=== PATIENT | male | born 1955 | race Caucasian/White ===

== ENCOUNTER → 2017-11-01 | Outpatient (CLI) | payer OTHER ==
[~2017-11-01] MED LIST: ACEDIPPM PO; ALBU3IS INH; ALBU90I INH; ALBU90OI61 INH; ALLO100 PO; ALUMAGSIMA PO; AMLO5; AMLO5 PO; ASCO1ER; ASPI81CH PO; ASPI81EC; ASPI81EC PO; ATOR10 PO; ATOR20 PO; Adipex-P37.5 MG PO; B Complete1 EACH PO; BUME2 PO; Bactrim 400-801 EACH PO; CAND32; CEPH500 PO; CHOL10002 PO; CIPR500 PO; CITA20 PO; CLON.2 PO; CLON.5 PO; CLOP75 PO; COLC.6 PO; CYAN1000 PO; DIPH50 PO; DOCU100 PO; DULO60 PO; ENOX40I SC; ENOX40I SQ; ERGO400 PO; FERR325 PO; FERSU125EA PO; FIBE4P PO; FISH1000 PO; FLUSAL1005 IH; FLUSAL2505 IH; FURO80; GABA100 PO; GABA300 PO; GLIP5ER PO; GLYB5 PO; GRAPE SEED EXT MC; GUAI600T33 PO; HEPARIN SQ; HYDACE10B PO; HYDACE5325 PO; HYDCOR1TO TOP; HYDR1TAB94 PO; INSU100I6 SC; INSUASPI SC; INSUASPI SUBQ; INSULANI SC; INSULANI SUBQ; INSULANPEN SC; IRON150C PO; LEVFLO500 PO; LEVO750 PO; LEVSOD100 PO; LEVSOD125 PO; LEVSOD150 PO; LEVSOD200; LEVSOD200 PO; LORA10ER PO; LORPSEER12 PO; MAGCHL64ER PO; MAGNESIUM; MELA3 PO; METF500 PO; METO10 PO; METO100 PO; METO100ER; METO100ER PO; METO2.5 PO; METO5 PO; METO50 PO; METO5A PO; MOMENI; MULTI VIT; Mupirocin22 GM TOP; NITR.4SL SL; NYST100P TOP; NYSTATIN POWDER; OMEG1CAP30 PO; OMEP20ER PO; ONDA4 PO; ONDA4ODT MM; OXYB5 PO; OXYC10ER PO; OXYM.05NI; PHENA200 PO; POTCHL10ER PO; POTCHL20ER PO; PRED10 PO; PROBIOTIC1 EAC1 PO; PROM25 PO; RANI150; RANI150 PO; ROPI.25 PO; ROPI1 PO; ROPI2 PO; SENN187 PO; SIMV40; SITA100T2 PO; SODPHOSO PR; SPIR25 PO; SPIR50 PO; SULTRIDS PO; SYNTHROID0.2 MG PO; Senna8.6 MG PO; Synthroid300 MCG PO; TERA1 PO; TERA5 PO; TERB250 PO; TOLT4 PO; TRAZ100 PO; TRAZ50; TRAZ50 PO; VENL37.5ER PO; VERA120 PO; VITAMIN D3; ZINC15 PO; ZINC220 PO; [UNRECOGNIZED DRUG - OTHER]; [UNRECOGNIZED DRUG - REMARK] PO
[2017-11-01 12:08] LABS: Protein, Urine Quantitative 46.9 mg/dL (0.0-11.9)
== END ==
LOC: LAB 11:05 → EDSTATUS 04-24 14:50 → LAB FUT 04-24 14:50
PROVIDERS: Internal Medicine Nephrology
DX: N18.2 Chronic kidney disease, stage 2 (mild) (principal); D63.1 Anemia in chronic kidney disease; D51.8 Other vitamin B12 deficiency anemias; D52.8 Other folate deficiency anemias; D50.9 Iron deficiency anemia, unspecified
CPT/HCPCS: 81050; 82043; 84156

== ENCOUNTER 2019-03-19 13:17 | Emergency (ER) | payer OTHER ==
[~2019-03-19] VITALS: Ht 175.3 cm; Wt 197.3 kg
[~2019-03-19 13:17] MED LIST changes: -CHOL10002 PO; +COLCHICINE0.6 MG PO; -INSU100I6 SC; +MAG6464 MG PO; +NOVOLOG FL100 UNIT/1 SC; -ROPI2 PO; +Ropinirole HCl1 MG PO; +VITAMIN D31000 UNI2 PO
[2019-03-19] MEDS ORDERED: Prednisone20 MG PO (15:27)
== END 2019-03-19 16:00 | disposition home or self-care (01) ==
LOC: ER 13:17
DX: L89.899 Pressure ulcer of other site, unspecified stage (principal); J45.901 Unspecified asthma with (acute) exacerbation; E66.01 Morbid (severe) obesity due to excess calories; Z68.44 Body mass index [BMI] 60.0-69.9, adult; Z91.040 Latex allergy status; Z79.899 Other long term (current) drug therapy; Z79.82 Long term (current) use of aspirin; Z79.4 Long term (current) use of insulin; Z79.891 Long term (current) use of opiate analgesic; E11.9 Type 2 diabetes mellitus without complications; I11.0 Hypertensive heart disease with heart failure; I50.9 Heart failure, unspecified
CPT/HCPCS: 71045; 94644; 99283-25

== ENCOUNTER 2019-05-12 15:54 | Observation (INO) | payer OTHER ==
[~2019-05-12] VITALS: Ht 175.3 cm; Wt 194.8 kg
[~2019-05-12 15:54] MED LIST changes: +Prednisone20 MG PO
[2019-05-12 16:15] LABS: BASOPHILS ABSOLUTE AUTO 0.03 K/mm3 (0.00-0.23); BASOPHILS PERCENT AUTO 0 % (0-2); EOSINOPHILS PERCENT AUTO 0 % (0-6); Hematocrit 39.1 % (37.0-53.0); Hemoglobin 12.3 g/dL (13.5-17.5); IMMATURE GRAN ABSOLUTE AUTO 0.27 K/mm3 (0.00-0.10); IMMATURE GRAN PERCENT AUTO 2 % (0-1); LYMPHOCYTES PERCENT AUTO 9 % (21-46); MONOCYTES ABSOLUTE AUTO 0.61 K/mm3 (0.16-1.47); MONOCYTES PERCENT AUTO 5 % (4-13); Mean Corpuscular HGB 29.5 pg (26.0-34.0); Mean Corpuscular HGB Conc 31.5 g/dL (31.5-36.5); Mean Corpuscular Volume 94 fL (80-100); Mean Platelet Volume 9.8 fL (9.1-12.4); NEUTROPHILS ABSOLUTE AUTO 9.64 K/mm3 (1.96-9.15); NEUTROPHILS PERCENT AUTO 83 % (41-73); Platelet Count 248 K/mm3 (150-400); RDW Coefficient Variation 13.4 % (11.7-14.2); RDW Standard Deviation 45.5 fL (35.1-46.3); Red Blood Cell Count 4.17 M/mm3 (4.30-5.90); White Blood Cell Count 11.65 K/mm3 (4.00-11.30)
[2019-05-12 16:36] LABS: Alanine Aminotransfer (ALT/SGP 22 U/L (12-78); Albumin, Blood 3.1 g/dL (3.4-5.0); Albumin/Globulin Ratio 0.8 (0.8-1.8); Alk Phos 61 U/L (50-136); Anion Gap 7 mmol/L (6-16); Aspartate Aminotrans (AST/SGOT 18 U/L (12-37); Bilirubin, Total 0.2 mg/dL (0.1-1.0); Blood Urea Nitrogen 45 mg/dL (8-24); Bun/Creatinine Ratio 29.4 (12.0-20.0); CO2, Blood 28 mmol/L (21-32); Calcium, Blood 9.4 mg/dL (8.5-10.1); Chloride, Blood 101 mmol/L (98-108); Creatinine, Blood 1.53 mg/dL (0.60-1.20); Globulin, Blood 3.8 g/dL (2.2-4.0); Glomerular Filtration Rate 49 (60-); Glucose, Blood 154 mg/dL (70-99); Potassium, Blood 4.9 mmol/L (3.5-5.5); Sodium, Blood 136 mmol/L (136-145); Total Protein, Blood 6.9 g/dL (6.4-8.2); Troponin I <0.015 ng/mL (0.000-0.040)
[2019-05-12] MEDS ORDERED: DOCU100 PO (17:44)
[2019-05-12] MEDS ORDERED: GABA300 PO ×2 (17:45→17:49)
[2019-05-12] MEDS ORDERED: TERA5 PO (17:50)
[2019-05-12] MEDS ORDERED: [UNRECOGNIZED DRUG - OTHER] SC ×2 (18:07→18:08)
[2019-05-12] MEDS ORDERED: Isosorbide Mono30 MG PO (18:10)
[2019-05-12] MEDS ORDERED: ISOMON20 PO (18:11)
[2019-05-12] MEDS ORDERED: Bumetanide1 MG PO (18:34)
--- NOTE | 2019-05-12 19:03 | NUR ---
patient arrived to the unit via gurny. max assist with transfers. states he does not walk, w/c bound at baseline. lift room. able to make his needs known. report given to PEDRO vaca.
[2019-05-12] MEDS ORDERED: NITR.4SL SL (19:38)
--- NOTE | 2019-05-12 20:03 | NUR ---
1900 PT ADMITTED INTO UNIT BY THIS NURSE AFTER RECEIVING REPORT FROM CORTES CHURCH. INITIAL ORDERS FROM ER HAD PATIENT NOT ON TELEMETRY, HOSPITALIST NOTIFIED AT 1926 WITH ORDERS RECEIVED (NSR WITH HEART RATE 62 PER ELISABETH, Heart Buddy). PTS SKIN WAS EXAMINED BY ROLLING SIDE TO SIDE X 6 ASSIST WITH LARGE LIFT BLANKET PLACED UNDERNEATH PATIENT (PT IS CURRENTLY IN A LIFT ROOM). PT VOICED HE DOES NOT WALK AND IS WHEELCHAIR BOUND, NO WALK PAST 6 YEARS. PTS IS RETURNING THIS EVENING TO BRING C/PAP BACK THIS EVENING.
--- NOTE | 2019-05-12 22:05 | NUR ---
PTS GLUCOSE 117, LANTUS 80 UNITS SCHEDULED MED GIVEN, PT ATE ENTIRE TURKEY SANDWICH WITH HERNANDEZ, CHOCOLATE PUDDING AND JELLO.
[2019-05-13 02:09] LABS: BASOPHILS ABSOLUTE AUTO 0.03 K/mm3 (0.00-0.23); BASOPHILS PERCENT AUTO 0 % (0-2); EOSINOPHILS ABSOLUTE AUTO 0.01 K/mm3 (0.00-0.68); EOSINOPHILS PERCENT AUTO 0 % (0-6); Hemoglobin 11.7 g/dL (13.5-17.5); IMMATURE GRAN ABSOLUTE AUTO 0.22 K/mm3 (0.00-0.10); IMMATURE GRAN PERCENT AUTO 2 % (0-1); LYMPHOCYTES PERCENT AUTO 12 % (21-46); MONOCYTES ABSOLUTE AUTO 0.86 K/mm3 (0.16-1.47); MONOCYTES PERCENT AUTO 8 % (4-13); Mean Corpuscular HGB 29.9 pg (26.0-34.0); Mean Corpuscular HGB Conc 31.6 g/dL (31.5-36.5); Mean Corpuscular Volume 95 fL (80-100); Mean Platelet Volume 9.5 fL (9.1-12.4); NEUTROPHILS PERCENT AUTO 78 % (41-73); Platelet Count 217 K/mm3 (150-400); RDW Coefficient Variation 13.5 % (11.7-14.2); RDW Standard Deviation 46.4 fL (35.1-46.3); Red Blood Cell Count 3.91 M/mm3 (4.30-5.90); White Blood Cell Count 10.32 K/mm3 (4.00-11.30)
[2019-05-13 02:27] LABS: Bun/Creatinine Ratio 26.7 (12.0-20.0); Calcium, Blood 8.9 mg/dL (8.5-10.1); Creatinine, Blood 1.76 mg/dL (0.60-1.20); Potassium, Blood 4.6 mmol/L (3.5-5.5)
--- NOTE | 2019-05-13 04:42 | NUR ---
SHIFT SUMMARY: 64 Y/O MORBID OBESE MALE RESTED COMFORTABLY ALL SHIFT, DENIES CHEST PAIN OR DSYPNEA, TELEMETRY REFLECTS NSR WITH HEART RATE 62 PER ALEXIS BARBER, TROPONIN 0.015 AT 0203 LAB DRAW, AT SIDE AND SUPPORTIVE ALL NIGHT, WORE BIPAP, BED LOW POSITION WITH CALL LIGHT AT SIDE.
[2019-05-13 20:50] LABS: Bun/Creatinine Ratio 26.2 (12.0-20.0); Calcium, Blood 8.9 mg/dL (8.5-10.1); Creatinine, Blood 1.87 mg/dL (0.60-1.20); Potassium, Blood 4.8 mmol/L (3.5-5.5)
--- NOTE | 2019-05-13 22:39 | NUR ---
2100 PT ATE TURKEY AND BEEF SANDWICH WITH HERNANDEZ AND MUSTARD WITH STRAWBERRY YOGURT FOR SNACK THIS EVENING.
--- NOTE | 2019-05-14 04:25 | NUR ---
SHIFT SUMMARY: 64 Y/O MORBID OBESE MALE RESTED COMFORTABLY ALL SHIFT WITH AT SIDE IN LOUNGE CHAIR WHOM VERY ATTENTIVE, DENIES PAIN OR NAUSEA, TELEMETRY REFLECTS NSR WITH FIRST DEGREE BLOCK AND OCCASIONAL PAC WITH HEART RATE 60 PER ELISABETH, QA AUTOMATION DEVELOPER, WORE C/PAP ALL SHIFT, HAPPY AND COOPERATIVE, BED LOW POSITION WITH CALL LIGHT AT SIDE.
[2019-05-14 05:29] LABS: BASOPHILS ABSOLUTE AUTO 0.04 K/mm3 (0.00-0.23); BASOPHILS PERCENT AUTO 0 % (0-2); EOSINOPHILS ABSOLUTE AUTO 0.13 K/mm3 (0.00-0.68); EOSINOPHILS PERCENT AUTO 1 % (0-6); Hematocrit 33.9 % (37.0-53.0); Hemoglobin 10.8 g/dL (13.5-17.5); IMMATURE GRAN ABSOLUTE AUTO 0.22 K/mm3 (0.00-0.10); IMMATURE GRAN PERCENT AUTO 2 % (0-1); LYMPHOCYTES ABSOLUTE AUTO 1.74 K/mm3 (0.84-5.20); LYMPHOCYTES PERCENT AUTO 19 % (21-46); MONOCYTES ABSOLUTE AUTO 1.11 K/mm3 (0.16-1.47); MONOCYTES PERCENT AUTO 12 % (4-13); Mean Corpuscular HGB 30.1 pg (26.0-34.0); Mean Corpuscular HGB Conc 31.9 g/dL (31.5-36.5); Mean Corpuscular Volume 94 fL (80-100); NEUTROPHILS ABSOLUTE AUTO 5.81 K/mm3 (1.96-9.15); NEUTROPHILS PERCENT AUTO 64 % (41-73); Platelet Count 218 K/mm3 (150-400); RDW Coefficient Variation 13.5 % (11.7-14.2); RDW Standard Deviation 46.8 fL (35.1-46.3); Red Blood Cell Count 3.59 M/mm3 (4.30-5.90); White Blood Cell Count 9.05 K/mm3 (4.00-11.30)
--- NOTE | 2019-05-14 17:50 | NUR ---
SHIFT SUMMARY PATIENT A&O X4, WEARING HOME CPAP MOST OF DAY. AT BEDSIDE, ATTENTIVE TO PT'S NEEDS. PT DENIES CHEST PAIN, SOB, NAUSEA. HE STATES HE HAS 5/10 CHRONIC BILAT SHOULDER PAIN. PATIENT HAD A EXTRA LARGE BM TODAY ON THE BEDPAN, ROLLED WITH HELP FROM THE LIFT. RN ASKED DR WINSTON ABOUT BACTROBAN OINTMENT ORDER AND HE STATED IT WAS 2% SO MEANT FOR ANY OPEN WOUNDS PATIENT HAS. HIS SKIN IS INTACT AT THIS TIME SO MED NOT GIVEN. BED LOW, WILL CONTINUE TO MONITOR.
--- NOTE | 2019-05-14 22:25 | NUR ---
2100 PT HAD TURKEY AND BEEF SANDWICH FOR HS SNACK.
--- NOTE | 2019-05-15 04:29 | NUR ---
SHIFT SUMMARY: 64 Y/O MORBID OBESE MALE RESTED COMFORTABLY ALL SHIFT WITH AT SIDE, DENIES CHEST PAIN, NAUSEA OR SOB, WORE BIPAP ALL NIGHT, VOICED HE STILL FEELS CONSTIPATED AND WOULD LIKE TO DRINK MORE PRUNE/APPLE JUICE BEFORE BREAKFAST TODAY, TELEMETRY REFLECTS SINUS BRADYCARDIA WITH HEART RATE 58 PER ELISABETH, CRATE OPENER, HAPPY AND COOPERATIVE, BED LOW POSITION, CALL LIGHT AT SIDE.
[2019-05-15] MEDS ORDERED: Isosorbide Mono60 MG PO (11:41)
[2019-05-15] MEDS ORDERED: AMLO10 PO (11:44)
[2019-05-15] MEDS ORDERED: ACET325 PO (11:44)
[2019-05-15] MEDS ORDERED: POTCHL20ER PO (11:45)
--- NOTE | 2019-05-15 13:20 | NUR ---
DISCHARGE PATIENT DISCHARGED HOME AT 1255 WITH [facility] TRANSPORT, TRANSFERRED TO [facility]RETCHER WITH ROOM LIFT. NO CHANGES TO PATIENT CONDITION, DENIES PAIN, SOB, NAUSEA. DISCHARGE PACKET EXPLAINED TO PT'S /CAREGIVER, MED CHANGES EXPLAINED. SHE VERBALIZED UNDERSTANDING AND SIGNED DC FORM. IV REMOVED.
== END 2019-05-15 12:52 | disposition home or self-care (01) ==
LOC: ER 15:54 → MEDS 15:55 → ENPENDDIS 05-15 11:07 → MEDS 05-15 12:52
PROVIDERS: Emergency Medicine; Family Medicine; ADMIT Internal Medicine
DX: I25.119 Atherosclerotic heart disease of native coronary artery with unspecified angina pectoris (principal); I13.0 Hypertensive heart and chronic kidney disease with heart failure and stage 1 through stage 4 chronic kidney disease, or unspecified chronic kidney disease; E11.22 Type 2 diabetes mellitus with diabetic chronic kidney disease; N18.3 Chronic kidney disease, stage 3 (moderate); I50.9 Heart failure, unspecified; E11.40 Type 2 diabetes mellitus with diabetic neuropathy, unspecified; E11.21 Type 2 diabetes mellitus with diabetic nephropathy; E11.43 Type 2 diabetes mellitus with diabetic autonomic (poly)neuropathy; K31.84 Gastroparesis; I27.20 Pulmonary hypertension, unspecified; E78.5 Hyperlipidemia, unspecified; J44.9 Chronic obstructive pulmonary disease, unspecified; E03.9 Hypothyroidism, unspecified; G47.33 Obstructive sleep apnea (adult) (pediatric); E66.01 Morbid (severe) obesity due to excess calories; M10.9 Gout, unspecified; G89.29 Other chronic pain; M54.9 Dorsalgia, unspecified; K21.9 Gastro-esophageal reflux disease without esophagitis; I07.1 Rheumatic tricuspid insufficiency; G25.81 Restless legs syndrome; Z91.048 Other nonmedicinal substance allergy status; Z95.5 Presence of coronary angioplasty implant and graft; Z99.89 Dependence on other enabling machines and devices; Z91.040 Latex allergy status; Z79.899 Other long term (current) drug therapy; Z79.51 Long term (current) use of inhaled steroids; Z79.82 Long term (current) use of aspirin; Z79.4 Long term (current) use of insulin; Z68.44 Body mass index [BMI] 60.0-69.9, adult
CPT/HCPCS: 36415; 71046; 80048; 80053; 82947; 83880; 84484; 85025; 93005; 93010; 94640; 94760; 94762; 96372; 99285-25; A9270; A9270-GY; C8929; G0378; J1650; J7030; Q9957

== ENCOUNTER → 2019-06-28 | Outpatient (CLI) | payer OTHER ==
[~2019-06-28] MED LIST changes: +ACET325 PO; +AMLO10 PO; +Bumetanide1 MG PO; +ISOMON20 PO; +Isosorbide Mono30 MG PO; +Isosorbide Mono60 MG PO; +[UNRECOGNIZED DRUG - OTHER] SC
[2019-06-28 16:03] LABS: U Amphetamine Screen Not Detected; U Barbituate Screen Not Detected; U Benzodiazapine Screen Not Detected; U Buprenorphine Screen Not Detected; U Cannabinoids Screen Not Detected; U Cocaine Screen Not Detected; U Methadone Screen Not Detected; U Methamphetamine Screen Not Detected; U Opiates Screen Not Detected; U Oxycodone Screen Not Detected; U Phencyclidine Screen Not Detected; U Propoxyphene Screen Not Detected
== END | disposition home or self-care (01) ==
LOC: LAB SHORT 13:18 → OLS 13:18
PROVIDERS: Surgery
DX: E66.01 Morbid (severe) obesity due to excess calories (principal); M10.9 Gout, unspecified; E03.9 Hypothyroidism, unspecified; G47.33 Obstructive sleep apnea (adult) (pediatric); G89.29 Other chronic pain; G25.81 Restless legs syndrome; I11.0 Hypertensive heart disease with heart failure; I50.9 Heart failure, unspecified; F32.9 Major depressive disorder, single episode, unspecified; I25.119 Atherosclerotic heart disease of native coronary artery with unspecified angina pectoris; E78.2 Mixed hyperlipidemia; E11.8 Type 2 diabetes mellitus with unspecified complications; R60.0 Localized edema; Z79.4 Long term (current) use of insulin; Z68.44 Body mass index [BMI] 60.0-69.9, adult

== ENCOUNTER → 2020-04-13 | Outpatient (CLI) | payer OTHER ==
[2020-04-13 15:51] LABS: Anion Gap 4 mmol/L (6-16); Blood Urea Nitrogen 32 mg/dL (8-24); Bun/Creatinine Ratio 17.2 (12.0-20.0); CO2, Blood 34 mmol/L (21-32); Chloride, Blood 104 mmol/L (98-108); Creatinine, Blood 1.86 mg/dL (0.60-1.20); Glomerular Filtration Rate 39 (60-); Glucose, Blood 140 mg/dL (70-99); Potassium, Blood 4.7 mmol/L (3.5-5.5); Sodium, Blood 142 mmol/L (136-145)
== END | disposition home or self-care (01) ==
LOC: LAB 14:06 → LAB SHORT 14:06
PROVIDERS: Family Medicine
DX: E11.42 Type 2 diabetes mellitus with diabetic polyneuropathy (principal); R39.198 Other difficulties with micturition; Z79.4 Long term (current) use of insulin
CPT/HCPCS: 80048; G0103

== ENCOUNTER → 2020-08-29 | Outpatient (CLI) | payer OTHER ==
[~2020-08-29] MED LIST changes: +FLUTICASONE-SA1 EAC1 INH; +NOVOLOG FL100 UNIT/3 SC; +ROSU5 PO; +Vitamin D2000 UNIT PO
[2020-08-29 16:33] LABS: Bilirubin, Urine Neg (Neg); Blood, Urine 1+ (Neg); Glucose Qualitative, Urine Neg (Neg); Ketones, Urine Neg (Neg); Leukocyte Esterase, Urine Neg (Neg); Nitrite, Urine Neg (Neg); Protein, Urine 3+ (Neg); Urobilinogen, Urine NORM (Normal)
[2020-08-29 16:39] LABS: Appearance, Urine Clear (Clear); Color, Urine Pale Yellow (P-Yellow)
[2020-08-29 16:41] LABS: Bacteria Rare /hpf; Red Blood Cells, Urine Rare /hpf (0-2); Squamous Epithelial Cells Rare /hpf (Few); White Blood Cells, Urine 0-2 /hpf (0-5)
[2020-08-29 16:54] LABS: Cholesterol 146 mg/dL (50-200); HDL Cholesterol 48 mg/dL (>39); LDL/HDL RATIO 1.4; Low Density Lipoprotein Chol 66 mg/dL (0-110); Triglycerides 162 mg/dL (30-160); Very Low Density Lipoprot Chol 32 mg/dL (6-32)
[2020-08-29 17:06] LABS: Albumin, Blood 2.6 g/dL (3.4-5.0); Anion Gap 5 mmol/L (6-16); Blood Urea Nitrogen 74 mg/dL (8-24); Bun/Creatinine Ratio 32.7 (12.0-20.0); CO2, Blood 35 mmol/L (21-32); Calcium, Blood 9.2 mg/dL (8.5-10.1); Chloride, Blood 94 mmol/L (98-108); Creatinine, Blood 2.26 mg/dL (0.60-1.20); Glomerular Filtration Rate 31 (60-); Glucose, Blood 235 mg/dL (70-99); Phosphorus, Blood 3.3 mg/dL (2.5-4.9); Potassium, Blood 3.6 mmol/L (3.5-5.5); Sodium, Blood 134 mmol/L (136-145)
== END | disposition home or self-care (01) ==
LOC: LAB 15:40 → LAB SHORT 15:40
PROVIDERS: Family Medicine; Internal Medicine Nephrology
DX: N18.30 Chronic kidney disease, stage 3 unspecified (principal); D63.1 Anemia in chronic kidney disease; E78.5 Hyperlipidemia, unspecified; R39.198 Other difficulties with micturition
CPT/HCPCS: 80061; 80069; 81001

== ENCOUNTER 2020-10-29 19:16 | Observation (INO) | payer OTHER ==
[~2020-10-29] VITALS: Ht 175.3 cm; Wt 193.0 kg
[~2020-10-29 19:16] MED LIST changes: -FLUTICASONE-SA1 EAC1 INH; -NOVOLOG FL100 UNIT/3 SC; -ROSU5 PO; -Vitamin D2000 UNIT PO
[2020-10-29 20:08] LABS: PCO2 Arterial 55.4 mmHg (35-45); PO2 Arterial 88.3 mmHg (80-100); pH Blood Arterial 7.44 (7.35-7.45)
[2020-10-29 20:20] LABS: BASOPHILS ABSOLUTE AUTO 0.07 K/mm3 (0.00-0.23); BASOPHILS PERCENT AUTO 1 % (0-2); EOSINOPHILS ABSOLUTE AUTO 0.23 K/mm3 (0.00-0.68); EOSINOPHILS PERCENT AUTO 2 % (0-6); Hematocrit 41.5 % (37.0-53.0); Hemoglobin 13.9 g/dL (13.5-17.5); IMMATURE GRAN ABSOLUTE AUTO 0.39 K/mm3 (0.00-0.10); IMMATURE GRAN PERCENT AUTO 3 % (0-1); LYMPHOCYTES ABSOLUTE AUTO 1.07 K/mm3 (0.84-5.20); LYMPHOCYTES PERCENT AUTO 8 % (21-46); MONOCYTES ABSOLUTE AUTO 0.82 K/mm3 (0.16-1.47); MONOCYTES PERCENT AUTO 6 % (4-13); Mean Corpuscular HGB 28.3 pg (26.0-34.0); Mean Corpuscular HGB Conc 33.5 g/dL (31.5-36.5); Mean Corpuscular Volume 85 fL (80-100); NEUTROPHILS ABSOLUTE AUTO 11.19 K/mm3 (1.96-9.15); NEUTROPHILS PERCENT AUTO 81 % (41-73); Platelet Count 220 K/mm3 (150-400); RDW Coefficient Variation 13.7 % (11.7-14.2); RDW Standard Deviation 42.5 fL (35.1-46.3); Red Blood Cell Count 4.91 M/mm3 (4.30-5.90); White Blood Cell Count 13.77 K/mm3 (4.00-11.30)
[2020-10-29 20:39] LABS: Alanine Aminotransfer (ALT/SGP 20 U/L (12-78); Albumin, Blood 2.5 g/dL (3.4-5.0); Albumin/Globulin Ratio 0.5 (0.8-1.8); Alk Phos 101 U/L (50-136); Anion Gap 7 mmol/L (6-16); Aspartate Aminotrans (AST/SGOT 18 U/L (12-37); Bilirubin, Total 0.4 mg/dL (0.1-1.0); Blood Urea Nitrogen 73 mg/dL (8-24); Bun/Creatinine Ratio 29.7 (12.0-20.0); CO2, Blood 37 mmol/L (21-32); Calcium, Blood 9.8 mg/dL (8.5-10.1); Chloride, Blood 85 mmol/L (98-108); Creatinine, Blood 2.46 mg/dL (0.60-1.20); Globulin, Blood 5.4 g/dL (2.2-4.0); Glomerular Filtration Rate 28 (60-); Glucose, Blood 227 mg/dL (70-99); Sodium, Blood 129 mmol/L (136-145); Total Protein, Blood 7.9 g/dL (6.4-8.2); Troponin I <0.015 ng/mL (0.000-0.040)
[2020-10-29 23:27] LABS: Free Thyroxine 1.58 ng/dL (0.70-1.60)
[2020-10-30 01:16] LABS: Source, Urine Clean Catch
[2020-10-30 01:20] LABS: Bilirubin, Urine Neg (Neg); Blood, Urine 5+ (Neg); Glucose Qualitative, Urine Neg (Neg); Ketones, Urine Neg (Neg); Leukocyte Esterase, Urine Neg (Neg); Nitrite, Urine Neg (Neg); Protein, Urine 4+ (Neg); Urobilinogen, Urine NORM (Normal)
[2020-10-30 01:28] LABS: Appearance, Urine Clear (Clear); Color, Urine Yellow (P-Yellow); White Blood Cells, Urine Rare /hpf (0-5)
[2020-10-30 01:29] LABS: Bacteria Rare /hpf; Red Blood Cells, Urine TNTC /hpf (0-2); Squamous Epithelial Cells Rare /hpf (Few)
[2020-10-30 01:31] LABS: U Amphetamine Screen Not Detected; U Barbituate Screen Not Detected; U Benzodiazapine Screen Not Detected; U Buprenorphine Screen Not Detected; U Cannabinoids Screen DETECTED; U Cocaine Screen Not Detected; U Methadone Screen Not Detected; U Methamphetamine Screen Not Detected; U Opiates Screen Not Detected; U Oxycodone Screen Not Detected; U Phencyclidine Screen Not Detected; U Propoxyphene Screen Not Detected
--- NOTE | 2020-10-30 03:36 | NUR ---
ARRIVED TO ICU PT ARRIVED TO ICU 9 AT 0012 VIA ED BED. 5 STAFF INVOLVED IN TRANSFERING PT TO ICU BED. PT IS SLOW TO RESOND, AND FALLS ASLEEP IN THE MIDDLE OF A SENTENCE, UNABLE TO ASK ADMISSION QUESTIONS DUE TO THIS; PT IS ORIENTED X4 AND FOLLOWS DIRECTIONS BUT IS VERY WEAK. PT C/O 8/10 PAIN IN CHEST THAT BECOMES WORSE WITH DEEP BREATHING BUT BETTER THAN EARLIER IN ED, CPOT 0 RIGHT NOW. ARRIVED FROM ED ON 2L NC, WHILE SLEEPING CPAP SETTINGS 15 USED WITH 4L BLEED IN, SPO2 >95% NOW. HR 90'S. SBP 120-130. AFIBRILE. ABD TENDER TO PALPATE. UA SENT, PT STATES HE HAS TROUBLE URINATING. AFFECT FLAT BUT COOPERATIVE WITH CARE. NS INFUSING AT 75ML/HR. CALL LIGHT WITHIN REACH, CURRENTLY SLEEPING. SEE ADMISSION ASSESSMENT FOR FULL ASSESSMENT.
[2020-10-30 04:13] LABS: BASOPHILS ABSOLUTE AUTO 0.06 K/mm3 (0.00-0.23); BASOPHILS PERCENT AUTO 0 % (0-2); EOSINOPHILS ABSOLUTE AUTO 0.02 K/mm3 (0.00-0.68); EOSINOPHILS PERCENT AUTO 0 % (0-6); Hematocrit 38.6 % (37.0-53.0); IMMATURE GRAN PERCENT AUTO 2 % (0-1); LYMPHOCYTES ABSOLUTE AUTO 0.92 K/mm3 (0.84-5.20); LYMPHOCYTES PERCENT AUTO 4 % (21-46); MONOCYTES ABSOLUTE AUTO 1.25 K/mm3 (0.16-1.47); MONOCYTES PERCENT AUTO 5 % (4-13); Mean Corpuscular HGB 28.3 pg (26.0-34.0); Mean Corpuscular HGB Conc 33.7 g/dL (31.5-36.5); Mean Corpuscular Volume 84 fL (80-100); Mean Platelet Volume 8.5 fL (9.1-12.4); NEUTROPHILS ABSOLUTE AUTO 21.04 K/mm3 (1.96-9.15); NEUTROPHILS PERCENT AUTO 88 % (41-73); Platelet Count 239 K/mm3 (150-400); RDW Coefficient Variation 13.7 % (11.7-14.2); RDW Standard Deviation 42.4 fL (35.1-46.3); White Blood Cell Count 23.79 K/mm3 (4.00-11.30)
[2020-10-30 04:32] LABS: Albumin, Blood 2.3 g/dL (3.4-5.0); Albumin/Globulin Ratio 0.4 (0.8-1.8); Bilirubin, Total 0.4 mg/dL (0.1-1.0); Bun/Creatinine Ratio 30.7 (12.0-20.0); CPK Creatine Kinase 83 U/L (39-308); Calcium, Blood 8.8 mg/dL (8.5-10.1); Creatinine, Blood 2.44 mg/dL (0.60-1.20); Globulin, Blood 5.2 g/dL (2.2-4.0); Potassium, Blood 2.8 mmol/L (3.5-5.5); Total Protein, Blood 7.5 g/dL (6.4-8.2)
--- NOTE | 2020-10-30 06:46 | NUR ---
END OF SHIFT SUMMARY PT IS ORIENTED X4 BUT LETHARGIC; PT FALLS ASLEEP IN THE MIDDLE OF SENTENCES AND SLOW TO RESPOND. PT REPORTS 7/10 CHEST PAIN THAT WORSENS WITH DEEP BREATHS; CPOT 0; NO NAUSEA OR VOMITING. AFIBRILE. SPO2 >95% ON 2L NC; PT REPORTS THAT THIS IS BASELINE; WHILE SLEEPING, PT USED CPAP; WEAK, PRODUCTIVE COUGH NOTED. HR 90'S. BP STABLE. DR KAYE NOTIFIED OF [facility] THIS AM, NEW ORDERS PROVIDED FOR 40MEQ OF KCL. PT ALSO STATES THAT HE HAS CAREGIVERS AT HOME FREQUENTLY TO ASSIST WITH ADL'S. PT SAID THAT HE DOES NOT WALK AND IS MOST OF THE TIME BED BOUND USING A URINAL AND BEDPAN AT HOME. WILL REPORT TO AM RN WHEN AVAILABLE.
--- NOTE | 2020-10-30 08:25 | NUR ---
ASSUMED CARE RECEIVED REPORT FROM CORTES PINTO. PT IS LYING IN BED ON LEFT SIDE; HE IS LETHARGIC/SLEEPY, TALKING VERY SOFTLY BUT IS ORIENTED TO SELF, SURROUNDINGS, SITUATION AND TIME. HE IS ON 2L NC, SPO2 94%; SINUS RHYTHM, RATE 90s; BP STABLE MAP > 65; RR 18-22; AFEBRILE. BED LOW AND LOCKED. CALL LIGHT WITHIN REACH.
--- NOTE | 2020-10-30 09:36 | NUR ---
MELISSA BELLE INFORMED ME THAT THEY ARE UNABLE TO DO THE V/Q SCAN THIS MORNING, AND WILL HAVE TO RESCHEDULE FOR TOMORROW. PECAN SHELLER IS IN ROOM FINISHING ECHOCARDIOGRAM, HE GAVE A PRELIMINARY STATEMENT THAT THERE IS NO VISIBLE RIGHT HEART STRAIN THAT HE CAN SEE ON THE US.
--- NOTE | 2020-10-30 11:38 | NUR ---
Echocardiogram using 0.60ml of Definity contrast performed.
[2020-10-30 12:43] LABS: CPK Creatine Kinase 63 U/L (39-308)
--- NOTE | 2020-10-30 12:50 | NUR ---
UPDATE REPORTED OFF TO CORTES SHORT. PT OUT OF ICU AT 1245 STABLE CONDITION, VSS, ORIENTED X 4, BUT NO CHANGE TO LETHARGY. HIS NS FLUIDS WERE PAUSED (ORIGINALLY INFUSING AT 75 ML/HR, HE IS TO RECEIVE 1.5 L TOTAL OF NS, HE IS STILL ON THE FIRST 1L BAG).
[2020-10-30] MEDS ORDERED: ROSU5 PO (13:25)
--- NOTE | 2020-10-30 13:58 | NUR ---
TRANSFER TO PCU VIA BED AT 1250. PT LETHARGIC AND SLEEPY ABLE TO ANSWER CARES QUESTIONS. VOICE IS SOFT AND QUIET, PT STATES "HE LOST HIS VOICE". ON 2 L O2 SATING AT 93-94%. COMPLAINS OF SOME PAIN WHEN BREATHING IN. LUNGS SOUND CLEAR BUT DIMINISHED. TELE SHOWING SINUS. SKIN CLEAN AND DRY. 2ND BAG OF SALINE HUNG TO INFUSE THE REMAINING 500ML. IV'S FLUSHED AND SALINE LOCKED. SCABS, BRUISING AND DRYNESS NOTED THROUGHOUT BODY. OCCASIONAL NONPRODUCTIVE COUGH. VITAL SIGNS STABLE WITH ELEVATED BP. WILL CONTINUE TO MONITOR.
--- NOTE | 2020-10-30 14:20 | NUR ---
CALL PLACE TO ANNE MARIE TO CONFR[facility] CRESTOR DOSAGE. PHARMACY NOTIFIED OF DOSAGE PT TAKES AT HOME.
--- NOTE | 2020-10-30 19:05 | NUR ---
SHIFT SUMMARY: PT REMAINS SLEEPY AND LETHARGIC. VITAL SIGNS STABLE, NO ACUTE CHANGES. TURNING AND ORAL CARE DONE. IN TO VISIT WITH PATIENT. FACE WASHED WITH WARM WATER AND EYE DROPS APPLIED. IV FLUIDS INFUSING REMAINING 500ML OF 1.5L FLUID ORDER. ON 2 L O2 SATING ABOVE 92%. TELE SHOWING SINUS WITH HR 90'S. DENIES CHEST PAIN. OCCASIONAL NONPRODUCTIVE COUGH. REPORTED OFF TO CORTES MEJIA
--- NOTE | 2020-10-31 03:25 | NUR ---
ASSUMED CARE RECEIVED REPORT FROM CORTES MEJIA. PT SLEEPING, IN NO ACUTE DISTRESS. LETHARGIC, BUT AROUSES EASILY TO VERBAL STIMULI. NO ACUTE NEEDS ASSESSED AT THIS TIME. CALL LIGHT, POSSESSIONS IN REACH, BED IN LOW POSITION.
--- NOTE | 2020-10-31 03:32 | NUR ---
transfer of care to keila mackey CARE TRANSFERRED TO KEILA RN @3848. PT CONTINUES TO BE ALERT BET LETHARGIC. SR/ST WITH STABLE VS. ON 1-2L NC OR CPAP WITH 2L BLEEDIN. LUNGS CLEAR/DIM. PT BEING REPOSITIONED IN BED. TOLERATED PO MEDS WELL WITHOUT INSTANCE OF COUGHING POST DRINKING WATER. OTHERWISE, NO ACUTE CHANGES.
[2020-10-31 04:40] LABS: BASOPHILS ABSOLUTE AUTO 0.08 K/mm3 (0.00-0.23); BASOPHILS PERCENT AUTO 1 % (0-2); EOSINOPHILS ABSOLUTE AUTO 0.02 K/mm3 (0.00-0.68); EOSINOPHILS PERCENT AUTO 0 % (0-6); Hematocrit 39.2 % (37.0-53.0); IMMATURE GRAN ABSOLUTE AUTO 0.45 K/mm3 (0.00-0.10); IMMATURE GRAN PERCENT AUTO 3 % (0-1); LYMPHOCYTES ABSOLUTE AUTO 1.19 K/mm3 (0.84-5.20); LYMPHOCYTES PERCENT AUTO 7 % (21-46); MONOCYTES ABSOLUTE AUTO 1.28 K/mm3 (0.16-1.47); MONOCYTES PERCENT AUTO 8 % (4-13); Mean Corpuscular HGB 28.1 pg (26.0-34.0); Mean Corpuscular HGB Conc 33.2 g/dL (31.5-36.5); Mean Corpuscular Volume 85 fL (80-100); Mean Platelet Volume 8.7 fL (9.1-12.4); NEUTROPHILS ABSOLUTE AUTO 13.26 K/mm3 (1.96-9.15); NEUTROPHILS PERCENT AUTO 81 % (41-73); Platelet Count 240 K/mm3 (150-400); RDW Standard Deviation 43.3 fL (35.1-46.3); Red Blood Cell Count 4.63 M/mm3 (4.30-5.90); White Blood Cell Count 16.28 K/mm3 (4.00-11.30)
[2020-10-31 04:59] LABS: Bun/Creatinine Ratio 29.4 (12.0-20.0); Calcium, Blood 8.8 mg/dL (8.5-10.1); Creatinine, Blood 2.62 mg/dL (0.60-1.20); Potassium, Blood 2.9 mmol/L (3.5-5.5)
--- NOTE | 2020-10-31 06:41 | NUR ---
TRAUMA SURGEON SUMMARY PT SLEEPING COMFORTABLY, NO ACUTE CHANGES IN MENTAL STATUS NOTED, PT INCREASINGLY ALERT. VS REVIEWED,WNL. O2 SATS STABLE ON CPAP. DENIES PAIN OR NEEDS AT THIS TIME. CALL LIGHT, POSSESSIONS IN REACH. WILL REPORT OFF TO ONCOMING RN.
[2020-10-31 11:15] LABS: Calcium, Blood 8.8 mg/dL (8.5-10.1); Creatinine, Blood 2.69 mg/dL (0.60-1.20); Potassium, Blood 3.1 mmol/L (3.5-5.5)
[2020-10-31] MEDS ORDERED: Vitamin D2000 UNIT PO (12:00)
[2020-10-31] MEDS ORDERED: FLUTICASONE-SA1 EAC1 INH (12:01)
[2020-10-31] MEDS ORDERED: NOVOLOG FL100 UNIT/3 SC (12:02)
== END 2020-10-31 15:28 | disposition home or self-care (01) ==
LOC: ER 19:16 → ICUW 19:17 → PCU 10-30 12:49
PROVIDERS: Emergency Medicine; Family Medicine; ADMIT Internal Medicine
DX: R07.89 Other chest pain (principal); G93.40 Encephalopathy, unspecified; E11.22 Type 2 diabetes mellitus with diabetic chronic kidney disease; E11.40 Type 2 diabetes mellitus with diabetic neuropathy, unspecified; E11.65 Type 2 diabetes mellitus with hyperglycemia; I13.0 Hypertensive heart and chronic kidney disease with heart failure and stage 1 through stage 4 chronic kidney disease, or unspecified chronic kidney disease; N18.30 Chronic kidney disease, stage 3 unspecified; I50.9 Heart failure, unspecified; E87.6 Hypokalemia; E66.01 Morbid (severe) obesity due to excess calories; M10.9 Gout, unspecified; R79.89 Other specified abnormal findings of blood chemistry; H10.89 Other conjunctivitis; J18.9 Pneumonia, unspecified organism; E03.9 Hypothyroidism, unspecified; G47.30 Sleep apnea, unspecified; E11.43 Type 2 diabetes mellitus with diabetic autonomic (poly)neuropathy; K31.84 Gastroparesis; I42.2 Other hypertrophic cardiomyopathy; I25.10 Atherosclerotic heart disease of native coronary artery without angina pectoris; I27.20 Pulmonary hypertension, unspecified; Z79.4 Long term (current) use of insulin; Z68.44 Body mass index [BMI] 60.0-69.9, adult; Z91.040 Latex allergy status; Z79.82 Long term (current) use of aspirin; Z86.16 Personal history of COVID-19
CPT/HCPCS: 36415; 36600; 70450; 71045; 80048; 80053; 81001; 82140; 82550; 82803; 82947; 83735; 83880; 84132; 84439; 84443; 84484; 85025; 85379; 93005; 93010; 93970; 94640; 94660; 94762; 96365; 96366; 96367; 96372; 96375; 99285-25; A9270; C8929; G0378; J0456; J0696; J1650; J2310; J3480; J7030; J7050; Q9957

== ENCOUNTER → 2020-11-08 | Outpatient (CLI) | payer OTHER ==
[~2020-11-08] MED LIST changes: +FLUTICASONE-SA1 EAC1 INH; +NOVOLOG FL100 UNIT/3 SC; +ROSU5 PO; +Vitamin D2000 UNIT PO
[2020-11-08 19:53] LABS: Bun/Creatinine Ratio 35.2 (12.0-20.0); Calcium, Blood 9.3 mg/dL (8.5-10.1); Creatinine, Blood 2.64 mg/dL (0.60-1.20); Potassium, Blood 2.5 mmol/L (3.5-5.5)
== END | disposition home or self-care (01) ==
LOC: LAB 18:52 → LAB HH 18:52 → LAB SHORT 18:52
PROVIDERS: Hospitalist
DX: I13.0 Hypertensive heart and chronic kidney disease with heart failure and stage 1 through stage 4 chronic kidney disease, or unspecified chronic kidney disease (principal); N18.9 Chronic kidney disease, unspecified; I50.9 Heart failure, unspecified; E11.22 Type 2 diabetes mellitus with diabetic chronic kidney disease; E11.42 Type 2 diabetes mellitus with diabetic polyneuropathy; G25.81 Restless legs syndrome; E87.6 Hypokalemia; E66.01 Morbid (severe) obesity due to excess calories; Z68.45 Body mass index [BMI] 70 or greater, adult
CPT/HCPCS: 80048

== ENCOUNTER → 2020-11-22 | Outpatient (CLI) | payer OTHER ==
[2020-11-22 17:52] LABS: Appearance, Urine Clear (Clear); Bilirubin, Urine Neg (Neg); Blood, Urine 3+ (Neg); Color, Urine Yellow (P-Yellow); Glucose Qualitative, Urine Neg (Neg); Ketones, Urine Neg (Neg); Leukocyte Esterase, Urine Neg (Neg); Nitrite, Urine Neg (Neg); Protein, Urine 3+ (Neg); Urobilinogen, Urine NORM (Normal)
[2020-11-22 18:06] LABS: Bacteria Few /hpf; Red Blood Cells, Urine 25-50 /hpf (0-2); Squamous Epithelial Cells Few /hpf (Few); White Blood Cells, Urine 0-2 /hpf (0-5)
[2020-11-22 18:51] LABS: Albumin, Blood 2.4 g/dL (3.4-5.0); Anion Gap 5 mmol/L (6-16); Blood Urea Nitrogen 84 mg/dL (8-24); CO2, Blood 34 mmol/L (21-32); Calcium, Blood 9.1 mg/dL (8.5-10.1); Chloride, Blood 92 mmol/L (98-108); Creatinine, Blood 2.27 mg/dL (0.60-1.20); Glomerular Filtration Rate 31 (60-); Glucose, Blood 220 mg/dL (70-99); Phosphorus, Blood 5.3 mg/dL (2.5-4.9); Potassium, Blood 3.2 mmol/L (3.5-5.5); Sodium, Blood 131 mmol/L (136-145)
[2020-11-23 16:37] LABS: Bun/Creatinine Ratio 40.3 (12.0-20.0); Creatinine, Blood 2.11 mg/dL (0.60-1.20); Potassium, Blood 3.3 mmol/L (3.5-5.5)
== END | disposition home or self-care (01) ==
LOC: LAB SHORT 13:30 → LAB 13:30
PROVIDERS: Internal Medicine; Internal Medicine Nephrology
DX: N18.30 Chronic kidney disease, stage 3 unspecified (principal); D63.1 Anemia in chronic kidney disease; N25.81 Secondary hyperparathyroidism of renal origin; E55.9 Vitamin D deficiency, unspecified; E29.1 Testicular hypofunction; R76.9 Abnormal immunological finding in serum, unspecified; R94.5 Abnormal results of liver function studies; R94.6 Abnormal results of thyroid function studies; E87.6 Hypokalemia
CPT/HCPCS: 80048; 80069; 81001; 87086; G0103

== ENCOUNTER → 2021-02-15 | Outpatient (CLI) | payer OTHER | END | disposition home or self-care (01) | LOC: LAB 11:45 → LAB SHORT 11:45 | DX: E87.6 Hypokalemia (principal) | CPT/HCPCS: 84132 ==

== ENCOUNTER 2021-04-11 17:41 | Emergency (ER) | payer MEDICARE, OTHER ==
[~2021-04-11] VITALS: Ht 175.3 cm; Wt 204.1 kg
[2021-04-11 18:04] LABS: Source, Urine Catheter
[2021-04-11 18:07] LABS: Appearance, Urine Clear (Clear); Bilirubin, Urine Neg (Neg); Blood, Urine 1+ (Neg); Color, Urine Yellow (P-Yellow); Glucose Qualitative, Urine Neg (Neg); Ketones, Urine Neg (Neg); Leukocyte Esterase, Urine Neg (Neg); Nitrite, Urine Neg (Neg); Protein, Urine 3+ (Neg); Specific Gravity, Urine 1.015 (1.003-1.022); Urobilinogen, Urine NORM (Normal)
[2021-04-11 18:38] LABS: Bacteria Mod /hpf; Hyaline Casts 0-2 /lpf (0-2); Renal Epithelial Rare /hpf (0-Rare); Squamous Epithelial Cells Rare /hpf (Few)
[2021-04-11] MEDS ORDERED: Magnesium Citr296 ML PO (19:00)
[2021-04-11] MEDS ORDERED: Flomax0.4 MG PO (19:00)
== END 2021-04-11 19:41 | disposition home or self-care (01) ==
LOC: ER 17:41
PROVIDERS: Emergency Medicine
DX: K59.00 Constipation, unspecified (principal); R33.9 Retention of urine, unspecified; I11.0 Hypertensive heart disease with heart failure; I50.9 Heart failure, unspecified; E11.40 Type 2 diabetes mellitus with diabetic neuropathy, unspecified; J45.909 Unspecified asthma, uncomplicated; E66.9 Obesity, unspecified; Z91.040 Latex allergy status; Z79.899 Other long term (current) drug therapy; Z79.82 Long term (current) use of aspirin; Z79.4 Long term (current) use of insulin; Z68.44 Body mass index [BMI] 60.0-69.9, adult
CPT/HCPCS: 51702; 81001; 87086; 99283

== ENCOUNTER → 2021-04-19 | Outpatient (CLI) | payer MEDICARE, OTHER ==
[~2021-04-19] MED LIST changes: +Flomax0.4 MG PO; +Magnesium Citr296 ML PO
[2021-04-19 14:03] LABS: Source, Urine Clean Catch
[2021-04-19 15:01] LABS: Bilirubin, Urine Neg (Neg); Blood, Urine 3+ (Neg); Color, Urine Yellow (P-Yellow); Glucose Qualitative, Urine Neg (Neg); Ketones, Urine Neg (Neg); Leukocyte Esterase, Urine 2+ (Neg); Nitrite, Urine Neg (Neg); Protein, Urine 4+ (Neg); Specific Gravity, Urine 1.015 (1.003-1.022); Urobilinogen, Urine NORM (Normal)
[2021-04-19 15:25] LABS: Appearance, Urine Hazy (Clear)
[2021-04-19 15:26] LABS: White Blood Cells, Urine 50-100 /hpf (0-5)
[2021-04-19 15:29] LABS: Bacteria Mod /hpf; Mucus Light (0-Heavy); Squamous Epithelial Cells Mod /hpf (Few)
[2021-04-19 15:30] LABS: Hyaline Casts 0-2 /lpf (0-2); Transitional Epithelial Cells Few /hpf (0-Rare)
== END | disposition home or self-care (01) ==
LOC: LAB HH 13:57 → LAB SHORT 13:57 → LAB 13:57
PROVIDERS: Nurse Practitioner Family
DX: N39.0 Urinary tract infection, site not specified (principal)
CPT/HCPCS: 81001; 87077; 87086; 87186

== ENCOUNTER → 2021-04-24 | Outpatient (CLI) | payer MEDICARE, OTHER ==
[2021-04-24 15:25] LABS: Magnesium, Blood 2.4 mg/dL (1.6-2.4)
[2021-04-24 15:26] LABS: Albumin, Blood 2.3 g/dL (3.4-5.0); Anion Gap 9 mmol/L (6-16); Blood Urea Nitrogen 95 mg/dL (8-24); Bun/Creatinine Ratio 28.7 (12.0-20.0); CO2, Blood 30 mmol/L (21-32); Calcium, Blood 8.9 mg/dL (8.5-10.1); Chloride, Blood 91 mmol/L (98-108); Creatinine, Blood 3.31 mg/dL (0.60-1.20); Glomerular Filtration Rate 19 (60-); Glucose, Blood 161 mg/dL (70-99); Phosphorus, Blood 4.1 mg/dL (2.5-4.9); Sodium, Blood 130 mmol/L (136-145)
== END | disposition home or self-care (01) ==
LOC: LAB SHORT 13:05 → LAB 13:05
PROVIDERS: Internal Medicine Nephrology
DX: N18.2 Chronic kidney disease, stage 2 (mild) (principal); D63.1 Anemia in chronic kidney disease
CPT/HCPCS: 80069; 83735

== ENCOUNTER → 2021-05-09 | Outpatient (CLI) | payer MEDICARE, OTHER ==
[~2021-05-09] MED LIST changes: +CONSTULOSE10 GM/15 M PO; +PROBIOTIC1 EA13 PO; +[UNRECOGNIZED DRUG - OTHER] PO
[2021-05-09 16:41] LABS: Appearance, Urine Clear (Clear); Bilirubin, Urine Neg (Neg); Blood, Urine 1+ (Neg); Color, Urine Yellow (P-Yellow); Glucose Qualitative, Urine Neg (Neg); Ketones, Urine Neg (Neg); Leukocyte Esterase, Urine Neg (Neg); Nitrite, Urine Neg (Neg); Protein, Urine 3+ (Neg); Urobilinogen, Urine NORM (Normal)
[2021-05-09 17:59] LABS: Bacteria Rare /hpf; Hyaline Casts 0-2 /lpf (0-2); Red Blood Cells, Urine 0-2 /hpf (0-2); Squamous Epithelial Cells Few /hpf (Few); White Blood Cells, Urine 0-2 /hpf (0-5)
== END | disposition home or self-care (01) ==
LOC: LAB HH 15:52
PROVIDERS: Family Medicine
DX: N39.0 Urinary tract infection, site not specified (principal)
CPT/HCPCS: 81001; 87086

== ENCOUNTER → 2021-05-16 | Outpatient (CLI) | payer MEDICARE, OTHER ==
[2021-05-16 13:00] LABS: CHOL/HDL RATIO 2.6; Cholesterol 127 mg/dL (50-200); HDL Cholesterol 49 mg/dL (>39); LDL/HDL RATIO 1.2; Low Density Lipoprotein Chol 58 mg/dL (0-110); Triglycerides 98 mg/dL (30-160); Very Low Density Lipoprot Chol 19 mg/dL (6-32)
== END | disposition home or self-care (01) ==
LOC: LAB HH 10:30 → LAB 10:30 → LAB SHORT 10:30
PROVIDERS: Family Medicine
DX: E78.5 Hyperlipidemia, unspecified (principal)
CPT/HCPCS: 80061

== ENCOUNTER → 2021-05-17 | Outpatient (CLI) | payer MEDICARE, OTHER ==
[2021-05-17 11:17] LABS: Source, Urine Clean Catch
[2021-05-17 12:29] LABS: BASOPHILS ABSOLUTE AUTO 0.04 K/mm3 (0.00-0.23); BASOPHILS PERCENT AUTO 0 % (0-2); EOSINOPHILS ABSOLUTE AUTO 0.01 K/mm3 (0.00-0.68); EOSINOPHILS PERCENT AUTO 0 % (0-6); Hematocrit 39.8 % (37.0-53.0); Hemoglobin 13.4 g/dL (13.5-17.5); IMMATURE GRAN ABSOLUTE AUTO 0.15 K/mm3 (0.00-0.10); IMMATURE GRAN PERCENT AUTO 2 % (0-1); LYMPHOCYTES ABSOLUTE AUTO 1.28 K/mm3 (0.84-5.20); LYMPHOCYTES PERCENT AUTO 13 % (21-46); MONOCYTES ABSOLUTE AUTO 0.78 K/mm3 (0.16-1.47); MONOCYTES PERCENT AUTO 8 % (4-13); Mean Corpuscular HGB 28.8 pg (26.0-34.0); Mean Corpuscular HGB Conc 33.7 g/dL (31.5-36.5); Mean Corpuscular Volume 85 fL (80-100); Mean Platelet Volume 9.8 fL (9.1-12.4); NEUTROPHILS ABSOLUTE AUTO 7.28 K/mm3 (1.96-9.15); NEUTROPHILS PERCENT AUTO 76 % (41-73); Platelet Count 189 K/mm3 (150-400); RDW Coefficient Variation 15.3 % (11.7-14.2); RDW Standard Deviation 47.5 fL (35.1-46.3); Red Blood Cell Count 4.66 M/mm3 (4.30-5.90); White Blood Cell Count 9.54 K/mm3 (4.00-11.30)
[2021-05-17 12:37] LABS: Appearance, Urine Clear (Clear); Bilirubin, Urine Neg (Neg); Blood, Urine 2+ (Neg); Color, Urine Yellow (P-Yellow); Glucose Qualitative, Urine Neg (Neg); Ketones, Urine Neg (Neg); Leukocyte Esterase, Urine 1+ (Neg); Nitrite, Urine Neg (Neg); Protein, Urine 3+ (Neg); Urobilinogen, Urine NORM (Normal)
[2021-05-17 12:56] LABS: Bacteria Rare /hpf; Squamous Epithelial Cells Rare /hpf (Few)
[2021-05-17 15:43] LABS: Alanine Aminotransfer (ALT/SGP 25 U/L (12-78); Albumin, Blood 2.5 g/dL (3.4-5.0); Albumin/Globulin Ratio 0.6 (0.8-1.8); Alk Phos 79 U/L (50-136); Anion Gap 8 mmol/L (6-16); Aspartate Aminotrans (AST/SGOT 17 U/L (12-37); Bilirubin, Total 0.5 mg/dL (0.1-1.0); Blood Urea Nitrogen 52 mg/dL (8-24); CO2, Blood 28 mmol/L (21-32); Calcium, Blood 9.4 mg/dL (8.5-10.1); Chloride, Blood 90 mmol/L (98-108); Creatinine, Blood 3.05 mg/dL (0.60-1.20); Globulin, Blood 4.2 g/dL (2.2-4.0); Glomerular Filtration Rate 21 (60-); Glucose, Blood 116 mg/dL (70-99); Potassium, Blood 3.2 mmol/L (3.5-5.5); Sodium, Blood 126 mmol/L (136-145); Total Protein, Blood 6.7 g/dL (6.4-8.2)
[2021-05-18 14:10] LABS: SARS COV-2 IGG AB Positive (Negative)
== END | disposition home or self-care (01) ==
LOC: LAB SHORT 11:10
PROVIDERS: Family Medicine
DX: Z12.5 Encounter for screening for malignant neoplasm of prostate (principal); E11.42 Type 2 diabetes mellitus with diabetic polyneuropathy; E03.9 Hypothyroidism, unspecified; R39.198 Other difficulties with micturition; R10.9 Unspecified abdominal pain; K59.00 Constipation, unspecified; Z79.4 Long term (current) use of insulin; Z20.822 Contact with and (suspected) exposure to COVID-19
CPT/HCPCS: 80053; 81001; 83036; 84443; 85025; 86769; 87086; G0103

== ENCOUNTER → 2021-07-08 | Outpatient (CLI) | payer MEDICARE, OTHER ==
[2021-07-08 13:39] LABS: Hematocrit 41.3 % (37.0-53.0); Hemoglobin 13.2 g/dL (13.5-17.5)
[2021-07-08 13:59] LABS: Albumin, Blood 2.6 g/dL (3.4-5.0); Anion Gap 7 mmol/L (6-16); Blood Urea Nitrogen 41 mg/dL (8-24); Bun/Creatinine Ratio 17.8 (12.0-20.0); CO2, Blood 27 mmol/L (21-32); Calcium, Blood 9.4 mg/dL (8.5-10.1); Chloride, Blood 105 mmol/L (98-108); Glomerular Filtration Rate 29 (60-); Glucose, Blood 154 mg/dL (70-99); Magnesium, Blood 1.9 mg/dL (1.6-2.4); Potassium, Blood 4.2 mmol/L (3.5-5.5); Sodium, Blood 139 mmol/L (136-145); Uric Acid, Blood 7.8 mg/dL (3.5-7.2)
[2021-07-08 14:05] LABS: Thyroid Stimulating Hormone 0.361 uIU/mL (0.360-4.800)
== END | disposition home or self-care (01) ==
LOC: LAB HH 11:54 → LAB 11:54
PROVIDERS: Internal Medicine Nephrology
DX: N18.2 Chronic kidney disease, stage 2 (mild) (principal); D63.1 Anemia in chronic kidney disease; N25.81 Secondary hyperparathyroidism of renal origin; E55.9 Vitamin D deficiency, unspecified; E78.00 Pure hypercholesterolemia, unspecified; R94.5 Abnormal results of liver function studies; R94.6 Abnormal results of thyroid function studies; R76.9 Abnormal immunological finding in serum, unspecified
CPT/HCPCS: 80069; 82533; 83735; 84443; 84550; 85014; 85018

== ENCOUNTER → 2021-08-06 | Outpatient (CLI) | payer MEDICARE, OTHER | END | disposition home or self-care (01) | LOC: LAB SHORT 15:41 | DX: E03.9 Hypothyroidism, unspecified (principal) | CPT/HCPCS: 85018 ==

== ENCOUNTER → 2021-08-13 | Outpatient (CLI) | payer MEDICARE, OTHER ==
[2021-08-13 11:03] LABS: Albumin, Blood 2.4 g/dL (3.4-5.0); Albumin/Globulin Ratio 0.7 (0.8-1.8); Bilirubin, Total 0.2 mg/dL (0.1-1.0); Bun/Creatinine Ratio 17.6 (12.0-20.0); Calcium, Blood 8.6 mg/dL (8.5-10.1); Creatinine, Blood 2.21 mg/dL (0.60-1.20); Globulin, Blood 3.5 g/dL (2.2-4.0); Potassium, Blood 4.7 mmol/L (3.5-5.5); Thyroid Stimulating Hormone 0.078 uIU/mL (0.360-4.800); Total Protein, Blood 5.9 g/dL (6.4-8.2)
[2021-08-13 11:07] LABS: Albumin, Blood 2.4 g/dL (3.4-5.0); Anion Gap 6 mmol/L (6-16); Blood Urea Nitrogen 38 mg/dL (8-24); Bun/Creatinine Ratio 17.4 (12.0-20.0); CO2, Blood 30 mmol/L (21-32); Calcium, Blood 8.6 mg/dL (8.5-10.1); Chloride, Blood 103 mmol/L (98-108); Creatinine, Blood 2.19 mg/dL (0.60-1.20); Glomerular Filtration Rate 30 (60-); Glucose, Blood 181 mg/dL (70-99); Magnesium, Blood 2.1 mg/dL (1.6-2.4); Phosphorus, Blood 4.3 mg/dL (2.5-4.9); Potassium, Blood 4.7 mmol/L (3.5-5.5); Sodium, Blood 139 mmol/L (136-145)
== END | disposition home or self-care (01) ==
LOC: LAB SHORT 09:15
PROVIDERS: Family Medicine; Internal Medicine Nephrology
DX: N18.30 Chronic kidney disease, stage 3 unspecified (principal); D63.1 Anemia in chronic kidney disease; N25.81 Secondary hyperparathyroidism of renal origin; E55.9 Vitamin D deficiency, unspecified; E78.00 Pure hypercholesterolemia, unspecified; E03.9 Hypothyroidism, unspecified; G60.9 Hereditary and idiopathic neuropathy, unspecified; R76.9 Abnormal immunological finding in serum, unspecified; R94.5 Abnormal results of liver function studies
CPT/HCPCS: 80053; 80069; 83735; 84100; 84443; 85018

== ENCOUNTER → 2021-11-21 | Outpatient (CLI) | payer MEDICARE, OTHER ==
[2021-11-21 14:04] LABS: Bun/Creatinine Ratio 21.2 (12.0-20.0); Creatinine, Blood 2.31 mg/dL (0.60-1.20); Potassium, Blood 4.3 mmol/L (3.5-5.5)
== END | disposition home or self-care (01) ==
LOC: LAB HH 12:16
PROVIDERS: Student in an Organized Health Care Education/Training Program
DX: E03.9 Hypothyroidism, unspecified (principal); E11.22 Type 2 diabetes mellitus with diabetic chronic kidney disease; N18.9 Chronic kidney disease, unspecified; E66.01 Morbid (severe) obesity due to excess calories
CPT/HCPCS: 80048; 83036; 84443

== ENCOUNTER 2021-12-17 14:25 | Emergency (ER) | payer MEDICARE, OTHER ==
[~2021-12-17] VITALS: Ht 175.3 cm; Wt 204.1 kg
[2021-12-17 16:22] LABS: BASOPHILS PERCENT AUTO 1 % (0-2); EOSINOPHILS ABSOLUTE AUTO 0.51 K/mm3 (0.00-0.68); EOSINOPHILS PERCENT AUTO 5 % (0-6); Hematocrit 38.7 % (37.0-53.0); Hemoglobin 12.4 g/dL (13.5-17.5); IMMATURE GRAN ABSOLUTE AUTO 0.47 K/mm3 (0.00-0.10); IMMATURE GRAN PERCENT AUTO 4 % (0-1); LYMPHOCYTES ABSOLUTE AUTO 1.73 K/mm3 (0.84-5.20); LYMPHOCYTES PERCENT AUTO 15 % (21-46); MONOCYTES ABSOLUTE AUTO 0.81 K/mm3 (0.16-1.47); MONOCYTES PERCENT AUTO 7 % (4-13); Mean Corpuscular HGB 29.7 pg (26.0-34.0); Mean Corpuscular Volume 93 fL (80-100); Mean Platelet Volume 9.3 fL (9.1-12.4); NEUTROPHILS ABSOLUTE AUTO 7.83 K/mm3 (1.96-9.15); NEUTROPHILS PERCENT AUTO 68 % (41-73); Platelet Count 235 K/mm3 (150-400); RDW Coefficient Variation 13.4 % (11.7-14.2); RDW Standard Deviation 45.7 fL (35.1-46.3); Red Blood Cell Count 4.17 M/mm3 (4.30-5.90); White Blood Cell Count 11.45 K/mm3 (4.00-11.30)
[2021-12-17 16:39] LABS: Bun/Creatinine Ratio 20.9 (12.0-20.0); Calcium, Blood 9.1 mg/dL (8.5-10.1); Creatinine, Blood 2.54 mg/dL (0.60-1.20); Potassium, Blood 3.5 mmol/L (3.5-5.5)
[2021-12-17] MEDS ORDERED: Prednisone50 MG PO (17:45)
== END 2021-12-17 19:41 | disposition home or self-care (01) ==
LOC: ER 14:25
PROVIDERS: Emergency Medicine
DX: R06.00 Dyspnea, unspecified (principal); E11.9 Type 2 diabetes mellitus without complications; I10 Essential (primary) hypertension; E66.01 Morbid (severe) obesity due to excess calories; J44.9 Chronic obstructive pulmonary disease, unspecified; G25.81 Restless legs syndrome; Z79.899 Other long term (current) drug therapy; Z79.82 Long term (current) use of aspirin; Z91.040 Latex allergy status; Z68.44 Body mass index [BMI] 60.0-69.9, adult
CPT/HCPCS: 36415; 71045; 80048; 83880; 85025; 93005; 93010; 96374; 96375; 99285-25; J1940; J2930

== ENCOUNTER → 2022-01-30 | Outpatient (CLI) | payer MEDICARE, OTHER ==
[~2022-01-30] MED LIST changes: +Prednisone50 MG PO
[2022-01-30 15:35] LABS: Magnesium, Blood 1.8 mg/dL (1.6-2.4)
[2022-01-30 15:38] LABS: Albumin, Blood 2.4 g/dL (3.4-5.0); Albumin/Globulin Ratio 0.6 (0.8-1.8); Bilirubin, Total 0.2 mg/dL (0.1-1.0); Creatinine, Blood 2.1 mg/dL (0.60-1.20); Globulin, Blood 3.9 g/dL (2.2-4.0); Potassium, Blood 4.2 mmol/L (3.5-5.5); Prealbumin, Blood 22.3 mg/dL (20.0-40.0); Total Protein, Blood 6.3 g/dL (6.4-8.2)
== END | disposition home or self-care (01) ==
LOC: LAB SHORT 13:41 → LAB 13:41
PROVIDERS: Family Medicine
DX: E11.42 Type 2 diabetes mellitus with diabetic polyneuropathy (principal); E11.22 Type 2 diabetes mellitus with diabetic chronic kidney disease; N18.30 Chronic kidney disease, stage 3 unspecified; E03.9 Hypothyroidism, unspecified; Z79.4 Long term (current) use of insulin
CPT/HCPCS: 80053; 83735; 84134; 84443

== ENCOUNTER → 2022-03-20 | Outpatient (CLI) | payer MEDICARE, OTHER ==
[2022-03-20 13:42] LABS: BASOPHILS ABSOLUTE AUTO 0.08 K/mm3 (0.00-0.23); BASOPHILS PERCENT AUTO 1 % (0-2); EOSINOPHILS ABSOLUTE AUTO 0.46 K/mm3 (0.00-0.68); EOSINOPHILS PERCENT AUTO 5 % (0-6); Hematocrit 40.7 % (37.0-53.0); Hemoglobin 13.3 g/dL (13.5-17.5); IMMATURE GRAN ABSOLUTE AUTO 0.36 K/mm3 (0.00-0.10); IMMATURE GRAN PERCENT AUTO 4 % (0-1); LYMPHOCYTES ABSOLUTE AUTO 2.07 K/mm3 (0.84-5.20); LYMPHOCYTES PERCENT AUTO 22 % (21-46); MONOCYTES ABSOLUTE AUTO 0.63 K/mm3 (0.16-1.47); MONOCYTES PERCENT AUTO 7 % (4-13); Mean Corpuscular HGB 30.2 pg (26.0-34.0); Mean Corpuscular HGB Conc 32.7 g/dL (31.5-36.5); Mean Corpuscular Volume 93 fL (80-100); Mean Platelet Volume 9.9 fL (9.1-12.4); NEUTROPHILS ABSOLUTE AUTO 5.79 K/mm3 (1.96-9.15); NEUTROPHILS PERCENT AUTO 62 % (41-73); Platelet Count 225 K/mm3 (150-400); RDW Coefficient Variation 14.1 % (11.7-14.2); RDW Standard Deviation 47.4 fL (35.1-46.3); White Blood Cell Count 9.39 K/mm3 (4.00-11.30)
== END | disposition home or self-care (01) ==
LOC: LAB SHORT 09:30 → LAB 09:30
PROVIDERS: Family Medicine
DX: E11.42 Type 2 diabetes mellitus with diabetic polyneuropathy (principal); Z79.4 Long term (current) use of insulin
CPT/HCPCS: 85025

== ENCOUNTER 2022-09-02 11:09 | Inpatient (IN) | payer MEDICARE, OTHER ==
[~2022-09-02] VITALS: Ht 175.3 cm; Wt 210.0 kg
[~2022-09-02 11:09] MED LIST changes: +Almacone Liqui355 ML PO; +Vancocin HCl125 MG PO
[2022-09-02 11:43] LABS: Base Excess Venous 5.8 mmol/L; Bicarbonate Venous 28.6 mmol/L (24.0-30.0); PCO2 Venous 53.8 mmHg (38-42); pH Blood Venous 7.37 (7.34-7.37)
[2022-09-02 11:45] LABS: BASOPHILS ABSOLUTE AUTO 0.04 K/mm3 (0.00-0.23); BASOPHILS PERCENT AUTO 1 % (0-2); EOSINOPHILS ABSOLUTE AUTO 0.25 K/mm3 (0.00-0.68); EOSINOPHILS PERCENT AUTO 3 % (0-6); Hematocrit 35.8 % (37.0-53.0); Hemoglobin 11.1 g/dL (13.5-17.5); IMMATURE GRAN ABSOLUTE AUTO 0.29 K/mm3 (0.00-0.10); IMMATURE GRAN PERCENT AUTO 4 % (0-1); LYMPHOCYTES ABSOLUTE AUTO 0.89 K/mm3 (0.84-5.20); LYMPHOCYTES PERCENT AUTO 12 % (21-46); MONOCYTES ABSOLUTE AUTO 0.69 K/mm3 (0.16-1.47); MONOCYTES PERCENT AUTO 9 % (4-13); Mean Corpuscular HGB 29.9 pg (26.0-34.0); Mean Corpuscular Volume 97 fL (80-100); Mean Platelet Volume 9.1 fL (9.1-12.4); NEUTROPHILS ABSOLUTE AUTO 5.46 K/mm3 (1.96-9.15); NEUTROPHILS PERCENT AUTO 72 % (41-73); Platelet Count 186 K/mm3 (150-400); RDW Standard Deviation 49.4 fL (35.1-46.3); Red Blood Cell Count 3.71 M/mm3 (4.30-5.90); White Blood Cell Count 7.62 K/mm3 (4.00-11.30)
[2022-09-02] MEDS ORDERED: POTCHL20ER PO (11:46)
[2022-09-02 12:15] LABS: Magnesium, Blood 3.1 mg/dL (1.6-2.4)
[2022-09-02 12:16] LABS: Albumin, Blood 2.5 g/dL (3.4-5.0); Albumin/Globulin Ratio 0.7 (0.8-1.8); Bilirubin, Total 0.3 mg/dL (0.1-1.0); Bun/Creatinine Ratio 18.1 (12.0-20.0); Creatinine, Blood 2.87 mg/dL (0.60-1.20); Globulin, Blood 3.7 g/dL (2.2-4.0); Potassium, Blood 5.1 mmol/L (3.5-5.5); Total Protein, Blood 6.2 g/dL (6.4-8.2)
[2022-09-02 12:24] LABS: Influenza A, PCR NEGATIVE (NEGATIVE); Influenza B, PCR NEGATIVE (NEGATIVE); Resp Syncytial Virus, PCR NEGATIVE (NEGATIVE); SARS-Cov-2 (COVID-19) PCR, MMC NEGATIVE (NEGATIVE)
[2022-09-02 17:24] LABS: Source, Urine Foley catheter
[2022-09-02 17:28] LABS: Appearance, Urine Clear (Clear); Bilirubin, Urine Neg (Neg); Blood, Urine 1+ (Neg); Glucose Qualitative, Urine Neg (Neg); Ketones, Urine Neg (Neg); Leukocyte Esterase, Urine Neg (Neg); Nitrite, Urine Neg (Neg); Protein, Urine 3+ (Neg); Urobilinogen, Urine NORM (Normal)
[2022-09-02 17:36] LABS: Color, Urine Pale Yellow (P-Yellow)
[2022-09-02 17:37] LABS: White Blood Cells, Urine 0-2 /hpf (0-5)
[2022-09-02 17:39] LABS: Bacteria Rare /hpf; Red Blood Cells, Urine 0-2 /hpf (0-2); Squamous Epithelial Cells Few /hpf (Few)
--- NOTE | 2022-09-02 17:45 | NUR ---
ADMIT NOTE Received reports from kevon Khoury in ed. Pt to room at approx 1600, pt transfered to bed with 6 person assist with slider sheet. Pt and spouse oriented to room and call light. Pt alert, oriented x4. Pt is bedbound at baseline, pt uses gurney transports to appointment. Pt reports coccyx discomfort, no redness noted on skin assessment, repositioned for comfort. Pt denies chest pain/pressure, nausea, and dizziness. Pt spo2 87-94% on ra, occasionally drops below 90% but quickly recovers, breahting shallow and tachypnic, bipap at bedside. Tele sinus 1st degree and pac's, bp stable. Abd severe distended, soft non-tender, with hypoactive bt, no bm since 08/31/22 per pt spouse/caregiver. Bilateral anterior calf venous ulcers noted, pictures in chart. Stanley in place and draining. Other vss. No other acute changes noted. Will continue to monitor.
[2022-09-02] MEDS ORDERED: Isosorbide Mono30 MG PO (20:27)
[2022-09-02] MEDS ORDERED: ISOMON20 PO (20:28)
[2022-09-02] MEDS ORDERED: BASAGLAR K100 UNIT/1 SC ×2 (20:32)
[2022-09-02] MEDS ORDERED: SYMBICORT 160-4.6 GM INH (20:34)
[2022-09-02] MEDS ORDERED: COLCHICINE0.6 MG PO (20:36)
[2022-09-02] MEDS ORDERED: DOC250 (20:38)
[2022-09-02] MEDS ORDERED: Diflucan150 MG PO (20:42)
[2022-09-02] MEDS ORDERED: GABA300 PO ×3 (20:46→20:48)
[2022-09-02] MEDS ORDERED: IPRAT-ALBUT 0.5-3 ML NEB (20:53)
[2022-09-02] MEDS ORDERED: VITAMIN D310 MC4 PO (20:58)
[2022-09-02] MEDS ORDERED: VITAMIN K2100 MCG PO (20:59)
[2022-09-02] MEDS ORDERED: LEVSOD100 PO (21:02)
[2022-09-02] MEDS ORDERED: METO50ER PO (21:05)
[2022-09-02] MEDS ORDERED: NOVOLOG FL100 UNIT/3 SC (21:07)
[2022-09-02] MEDS ORDERED: Ropinirole HCl1 MG PO (21:08)
--- NOTE | 2022-09-02 21:09 | NUR ---
PHYSICIAN COMMUNICATION CONTACTED DR CAI AROUND 2029 TO NOTIFY HER THAT THE PATIENT IS EXPERIENCING BLADDER SPASMS FROM HIS INDWELLING FRY THAT IS PRESENT FOR STRICT I&O AND TO ASK IF THE PATIENT'S FLOMAX, WHICH WAS SCHEDULED TO START AT 0900 2/, CAN BE STARTED TONIGHT INSTEAD. DR CAI SAID THAT WAS FINE.
--- NOTE | 2022-09-02 21:49 | NUR ---
PHYSICIAN COMMUNICATION CONTACTED DR CAI TO NOTIFY HER THAT THE PATIENT'S BLOOD SUGAR WAS 103 AND THAT HE HAS 80 UNITS GLARGINE SCHEDULED FOR THIS EVENING AND THAT THIS NURSE WAS NOT COMFORTABLE GIVING THAT MUCH INSULIN WITH WHERE THE PATIENT'S BLOOD SUGAR CURRENTLY IS. INFORMED DR CAI THAT THE PATIENT IS EATING AND THAT HE DOESN'T CURRETNLY HAVE AN ORDER FOR HYPOGLYCEMIA. DR CAI TO ENTER ORDER FOR INSULIN ADJUSTMENT FOR THIS EVENING. WILL RECHECK PATIENT'S BLOOD SUGAR AT MIDNIGHT.
[2022-09-03 04:20] LABS: BASOPHILS ABSOLUTE AUTO 0.06 K/mm3 (0.00-0.23); BASOPHILS PERCENT AUTO 1 % (0-2); EOSINOPHILS ABSOLUTE AUTO 0.25 K/mm3 (0.00-0.68); EOSINOPHILS PERCENT AUTO 3 % (0-6); Hematocrit 34.9 % (37.0-53.0); IMMATURE GRAN ABSOLUTE AUTO 0.25 K/mm3 (0.00-0.10); IMMATURE GRAN PERCENT AUTO 3 % (0-1); LYMPHOCYTES PERCENT AUTO 19 % (21-46); MONOCYTES ABSOLUTE AUTO 0.99 K/mm3 (0.16-1.47); MONOCYTES PERCENT AUTO 12 % (4-13); Mean Corpuscular HGB 30.6 pg (26.0-34.0); Mean Corpuscular HGB Conc 31.5 g/dL (31.5-36.5); Mean Corpuscular Volume 97 fL (80-100); Mean Platelet Volume 9.5 fL (9.1-12.4); NEUTROPHILS ABSOLUTE AUTO 5.44 K/mm3 (1.96-9.15); NEUTROPHILS PERCENT AUTO 63 % (41-73); Platelet Count 180 K/mm3 (150-400); RDW Coefficient Variation 14.1 % (11.7-14.2); RDW Standard Deviation 50.2 fL (35.1-46.3); White Blood Cell Count 8.59 K/mm3 (4.00-11.30)
[2022-09-03 04:43] LABS: Albumin, Blood 2.3 g/dL (3.4-5.0); Albumin/Globulin Ratio 0.6 (0.8-1.8); Bilirubin, Total 0.5 mg/dL (0.1-1.0); Bun/Creatinine Ratio 17.9 (12.0-20.0); Calcium, Blood 8.8 mg/dL (8.5-10.1); Creatinine, Blood 2.9 mg/dL (0.60-1.20); Globulin, Blood 3.7 g/dL (2.2-4.0); Potassium, Blood 5.4 mmol/L (3.5-5.5)
--- NOTE | 2022-09-03 05:49 | NUR ---
SHIFT SUMMARY PATIENT ALERT AND ORINETED X4. PATIENT BEDREST HE IS BEDBOUND AT BASELINE. DENIES NUMBNESS/TINGLING. VITAL SIGNS STABLE, BRADYCARDIC 40'S-50'S WHEN SLEEPING. DEEP, PITTING EDEMA NOTED ON BOTH OF PATIENT'S LOWER EXTREMITES PATIENT'S LUNG SOUNDS DIMINISHED IN ALL ODELL. TOLERATED BEING ON HOME CPAP WITH 1 LITER BLEED. PERIODS OF APNEA UP TO 30 SECONDS NOTED, O2 SATURATION MAINTAINED THROUGHOUT. PATIENT EXPERIENCING BLADDER SPASMS FROM HIS FRY CATHETER, THE PAIN BECOMES WORSE WHEN SITTING UP. FRY PATENT AND DRAINING YELLOW URINE. PATIENT MEDICATED WITH 40 UNITS INSULIN GLARGINE FOR EVENING DOSE INSTEAD OF [address] CAI PATIENT'S BLOOD SUGAR WAS 103. RECHECKED BLOOD SUGAR AT MIDNIGHT AND IT WAS 99, PATIENT GIVEN A SNACK. BLOOD SUGAR THIS MORNING ON LAB DRAW WAS 132. CALL LIGHT WTIHIN REACH.
--- NOTE | 2022-09-03 07:51 | NUR ---
AM NOTE PT ALERT, ORIENTED x4, CALM AND COOPERATIVE WITH CARE. PT ON BEDREST, WILL REPOSITION Q2. CPAP IN PLACE THIS AM WITH 1L BLEED IN, REPORTS OF APNIC EPISODES FROM LAST NIGHT, NOTIFIED RT AND DR AT BEDSIDE; LS DIM T/O. TELE SINUS NICOLE 40-50'S, DISCUSSED WITH DR AT BEDSIDE, PLANS TO HOLD METOPROLOL THIS AM, BP ELEVATED, WILL MEDICATION WITH SCHEDULED MEDICATION. ABD SEREVE DISTENDED, NORMOACTIVE BT, NONTENDER, BM LAST SHIFT, PLANS TO CHECK C.DIFF WITH NEXT BM. OTHER VSS. NO OTHER ACUTE CHANGES NOTED. WILL CONTINUE TO MONITIOR.
--- NOTE | 2022-09-03 09:04 | NUR ---
Pt resting in bed and is A&OX4. Pt reports living at home with his . He reports having a daughter from a previous marriage and 4 step daughters from current marriage. Pt reports family not as supportive as they have been in the past. Continued therapeutic listening. Engaged in therapeutic discussion regarding code status wishes. Educated on life sustaining factors including risk factors and implications of CPR. Pt reports he will reflect on his wishes for code status. Palliative Care will remain available
--- NOTE | 2022-09-03 14:30 | NUR ---
TRANSFER OF CARE NO ACUTE CHANGES NOTED. VSS. SPOUSE AT BEDSIDE. REPORT GIVEN TO CORTES STAPLES ASSUMING CARE OF PATIENT.
[2022-09-04 04:07] LABS: BASOPHILS ABSOLUTE AUTO 0.07 K/mm3 (0.00-0.23); BASOPHILS PERCENT AUTO 1 % (0-2); EOSINOPHILS ABSOLUTE AUTO 0.38 K/mm3 (0.00-0.68); EOSINOPHILS PERCENT AUTO 4 % (0-6); Hematocrit 35.8 % (37.0-53.0); Hemoglobin 11.6 g/dL (13.5-17.5); IMMATURE GRAN ABSOLUTE AUTO 0.22 K/mm3 (0.00-0.10); IMMATURE GRAN PERCENT AUTO 2 % (0-1); LYMPHOCYTES ABSOLUTE AUTO 2.52 K/mm3 (0.84-5.20); LYMPHOCYTES PERCENT AUTO 26 % (21-46); MONOCYTES ABSOLUTE AUTO 0.95 K/mm3 (0.16-1.47); MONOCYTES PERCENT AUTO 10 % (4-13); Mean Corpuscular HGB 30.4 pg (26.0-34.0); Mean Corpuscular HGB Conc 32.4 g/dL (31.5-36.5); Mean Corpuscular Volume 94 fL (80-100); Mean Platelet Volume 8.9 fL (9.1-12.4); NEUTROPHILS PERCENT AUTO 57 % (41-73); Platelet Count 187 K/mm3 (150-400); RDW Coefficient Variation 14.1 % (11.7-14.2); RDW Standard Deviation 48.4 fL (35.1-46.3); Red Blood Cell Count 3.81 M/mm3 (4.30-5.90); White Blood Cell Count 9.64 K/mm3 (4.00-11.30)
[2022-09-04 04:48] LABS: Anion Gap 1 mmol/L (6-16); Blood Urea Nitrogen 57 mg/dL (8-24); Bun/Creatinine Ratio 19.3 (12.0-20.0); CHOL/HDL RATIO 2.8; CO2, Blood 33 mmol/L (21-32); Calcium, Blood 9.2 mg/dL (8.5-10.1); Chloride, Blood 105 mmol/L (98-108); Cholesterol 129 mg/dL (50-200); Creatinine, Blood 2.95 mg/dL (0.60-1.20); Glomerular Filtration Rate 23 (60-); Glucose, Blood 54 mg/dL (70-99); HDL Cholesterol 46 mg/dL (>39); LDL/HDL RATIO 1.5; Low Density Lipoprotein Chol 69 mg/dL (0-110); Potassium, Blood 4.2 mmol/L (3.5-5.5); Sodium, Blood 139 mmol/L (136-145); Triglycerides 68 mg/dL (30-160); Very Low Density Lipoprot Chol 13 mg/dL (6-32)
--- NOTE | 2022-09-04 06:11 | NUR ---
SHIFT SUMMARY PT IS A&OX4, NEEDS 2P MOD ASSIST FOR Q2 TURNS, HAS BEEN ON HIS CPAP W/ 1L BLEED AND SP02 HAS SUSTAINED >90%, AND THE PT HAS DENIED ANY ANGINA OR CHEST PRESSURE THIS SHIFT. HE WAS GIVEN A BEDBATH AND WAS ABLE TO ASSIST WITH HIS TURNING AND BOOSTING. HE HAS A FRY DRAINING TO GRAVITY AND HAS NOT C/O ANY BLADDER SPASMS THIS SHIFT. PT HAS BEEN ASLEEP MOST OF THE SHIFT AND CALLS APPROPRIATELY WHEN HE HAS NEEDS. HIS BED IS IN LOW, THREE SIDE RAILS UP, AND CALL LIGHT IS IN REACH. WILL CONTINUE TO MONITOR UNTIL SHIFT REPORT IS GIVEN TO THE ONCOMING SHIFT RN. SEE NOTES FOR ANY UPDATES.
--- NOTE | 2022-09-04 08:00 | NUR ---
ASSUMED CARE PT. ALERT AND ORIENTED THIS AM. CURRENTLY ON HOME CPAP. DENIES ANY SOB THIS AM. PT. BED BOUND AT BASELINE. ABLE TO ASSSIT WITH REPOSITIONING IN BED. PT. LS CLEAR T/O. DENIES PAIN AT THIS TIME. PT. CONTINUES WITH DIURESIS, FRY IN PLACE DRAINING TO GRAVITY. PT. BG LOW THIS AM, AT 48, JUICE PROVIDED WITH INCREASE NOTED TO 57. BREAKFAST TRAY TO ROOM BG RECHECKED CURRENTLY 77. INSULIN HELD THIS AM DR AWARE. VSS THIS AM. CALL LIGHT IN REACH, ALL NEEDS MET AT THIS TIME.
--- NOTE | 2022-09-04 09:59 | NUR ---
DR. WELSH TO PT BEDSIDE. PT REMAINS ON ROOM AIR, TOLERATING WELL. PLANS FOR DC HOME TODAY.
[2022-09-04] MEDS ORDERED: MICONAZOLE NIT130 GM TOP (12:01)
[2022-09-04] MEDS ORDERED: TAMS.4ER PO (13:33)
--- NOTE | 2022-09-04 15:18 | NUR ---
PT DISCHARGED VIA EMS TO HOME VSS UPON DISCHARGE. IVS AND CATHETER REMOVED PRIOR TO DC HOME. PT. BELONGINGS AND DISCHARGE INSTRUCTIONS SENT WITH EMS.
== END 2022-09-04 15:38 | disposition home or self-care (01) | DRG 291 ==
LOC: ER 11:09 → PCU 13:29
PROVIDERS: Family Medicine Adult Medicine; Nurse Practitioner Acute Care; Student in an Organized Health Care Education/Training Program; ADMIT Internal Medicine
PROC: 5A09357 Assistance with Respiratory Ventilation, Less than 24 Consecutive Hours, Continuous Positive Airway Pressure (ICD-10-PCS; principal; 2022-09-02)
PROC: 3E02340 Introduction of Influenza Vaccine into Muscle, Percutaneous Approach (ICD-10-PCS; 2022-09-02)
DX: I13.0 Hypertensive heart and chronic kidney disease with heart failure and stage 1 through stage 4 chronic kidney disease, or unspecified chronic kidney disease (principal); I50.33 Acute on chronic diastolic (congestive) heart failure; J96.21 Acute and chronic respiratory failure with hypoxia; Z68.44 Body mass index [BMI] 60.0-69.9, adult; Z23 Encounter for immunization; Z20.822 Contact with and (suspected) exposure to COVID-19; M10.9 Gout, unspecified; G89.4 Chronic pain syndrome; E11.40 Type 2 diabetes mellitus with diabetic neuropathy, unspecified; G25.81 Restless legs syndrome; E11.22 Type 2 diabetes mellitus with diabetic chronic kidney disease; E66.01 Morbid (severe) obesity due to excess calories; N40.0 Benign prostatic hyperplasia without lower urinary tract symptoms; J44.9 Chronic obstructive pulmonary disease, unspecified; N18.32 Chronic kidney disease, stage 3b; I44.0 Atrioventricular block, first degree; E11.43 Type 2 diabetes mellitus with diabetic autonomic (poly)neuropathy; E03.9 Hypothyroidism, unspecified; K31.84 Gastroparesis; G47.33 Obstructive sleep apnea (adult) (pediatric); Z99.89 Dependence on other enabling machines and devices; Z90.89 Acquired absence of other organs; Z98.890 Other specified postprocedural states; Z91.040 Latex allergy status; Z79.51 Long term (current) use of inhaled steroids; Z79.52 Long term (current) use of systemic steroids; Z79.890 Hormone replacement therapy; Z79.899 Other long term (current) drug therapy
CPT/HCPCS: 0241U; 36415; 51702; 71045; 80048; 80053; 80061; 81001; 82803; 82947; 83036; 83735; 83880; 84145; 84443; 85025; 90686; 93005; 93010; 93306; 94640; 94660; 94664; 94760; 94762; 96374-59; 97166; 97530; 99285-25; A9270; J1644; J1815; J1940

== ENCOUNTER → 2022-09-23 | Outpatient (CLI) | payer MEDICARE, OTHER ==
[~2022-09-23] MED LIST changes: +BASAGLAR K100 UNIT/1 SC; +DOC250; +Diflucan150 MG PO; +IPRAT-ALBUT 0.5-3 ML NEB; +METO50ER PO; +MICONAZOLE NIT130 GM TOP; +SYMBICORT 160-4.6 GM INH; +TAMS.4ER PO; +VITAMIN D310 MC4 PO; +VITAMIN K2100 MCG PO
[2022-09-23 17:49] LABS: BASOPHILS ABSOLUTE AUTO 0.06 K/mm3 (0.00-0.23); BASOPHILS PERCENT AUTO 1 % (0-2); EOSINOPHILS ABSOLUTE AUTO 0.41 K/mm3 (0.00-0.68); EOSINOPHILS PERCENT AUTO 5 % (0-6); Hematocrit 37.9 % (37.0-53.0); Hemoglobin 12.3 g/dL (13.5-17.5); IMMATURE GRAN ABSOLUTE AUTO 0.22 K/mm3 (0.00-0.10); IMMATURE GRAN PERCENT AUTO 3 % (0-1); LYMPHOCYTES ABSOLUTE AUTO 1.57 K/mm3 (0.84-5.20); LYMPHOCYTES PERCENT AUTO 18 % (21-46); MONOCYTES ABSOLUTE AUTO 0.73 K/mm3 (0.16-1.47); MONOCYTES PERCENT AUTO 8 % (4-13); Mean Corpuscular HGB Conc 32.5 g/dL (31.5-36.5); Mean Corpuscular Volume 92 fL (80-100); NEUTROPHILS ABSOLUTE AUTO 5.97 K/mm3 (1.96-9.15); NEUTROPHILS PERCENT AUTO 67 % (41-73); RDW Coefficient Variation 13.4 % (11.7-14.2); RDW Standard Deviation 45.5 fL (35.1-46.3); White Blood Cell Count 8.96 K/mm3 (4.00-11.30)
[2022-09-23 18:07] LABS: Mean Platelet Volume 9.9 fL (9.1-12.4); Platelet Count 235 K/mm3 (150-400)
[2022-09-23 20:51] LABS: Percent Saturation 23.5 % (20.0-50.0)
[2022-09-23 21:11] LABS: Albumin, Blood 2.7 g/dL (3.4-5.0); Albumin/Globulin Ratio 0.7 (0.8-1.8); Bilirubin, Total 0.5 mg/dL (0.1-1.0); Bun/Creatinine Ratio 14.6 (12.0-20.0); Calcium, Blood 8.7 mg/dL (8.5-10.1); Creatinine, Blood 2.67 mg/dL (0.60-1.20); Potassium, Blood 4.3 mmol/L (3.5-5.5); Total Protein, Blood 6.7 g/dL (6.4-8.2)
== END | disposition home or self-care (01) ==
LOC: LAB 14:03 → LAB SHORT 14:03
PROVIDERS: Family Medicine
DX: E11.42 Type 2 diabetes mellitus with diabetic polyneuropathy (principal); E11.22 Type 2 diabetes mellitus with diabetic chronic kidney disease; I12.9 Hypertensive chronic kidney disease with stage 1 through stage 4 chronic kidney disease, or unspecified chronic kidney disease; N18.9 Chronic kidney disease, unspecified; J44.9 Chronic obstructive pulmonary disease, unspecified
CPT/HCPCS: 80053; 82728; 83540; 83550; 85025

== ENCOUNTER → 2023-03-09 | Outpatient (CLI) | payer MEDICARE, OTHER | LOC: LAB 12:31 | DX: N18.4 Chronic kidney disease, stage 4 (severe) (principal) ==

== ENCOUNTER → 2023-03-12 | Outpatient (CLI) | payer MEDICARE, OTHER ==
[~2023-03-12] MED LIST changes: +MIRALAX17 GM PO; +NEURONTIN300 MG PO; +Phenergan25 M1 PO; +ROSUVASTATIN CA20 MG PO
[2023-03-12 15:53] LABS: Albumin, Blood 2.8 g/dL (3.4-5.0); Albumin/Globulin Ratio 0.7 (0.8-1.8); Bilirubin, Total 0.3 mg/dL (0.1-1.0); Bun/Creatinine Ratio 12.7 (12.0-20.0); Calcium, Blood 9.4 mg/dL (8.5-10.1); Creatinine, Blood 3.24 mg/dL (0.60-1.20); Globulin, Blood 4.2 g/dL (2.2-4.0); Hematocrit 39.4 % (37.0-53.0); Hemoglobin 12.8 g/dL (13.5-17.5); Mean Corpuscular HGB 30.5 pg (26.0-34.0); Mean Corpuscular HGB Conc 32.5 g/dL (31.5-36.5); Mean Corpuscular Volume 94 fL (80-100); RDW Coefficient Variation 14.2 % (11.7-14.2); RDW Standard Deviation 48.5 fL (35.1-46.3); Thyroid Stimulating Hormone 2.63 uIU/mL (0.360-4.800); White Blood Cell Count 9.77 K/mm3 (4.00-11.30)
[2023-03-12 17:11] LABS: BASOPHILS PERCENT MAN 0 % (0-2); EOSINOPHILS ABSOLUTE MAN 0.58 K/mm3 (0.00-0.68); EOSINOPHILS PERCENT MAN 6 % (0-6); LYMPHOCYTES % ATYPICAL MANUAL 1 % (0-0); LYMPHOCYTES ABSOLUTE MAN 1.85 K/mm3 (0.84-5.20); LYMPHOCYTES PERCENT MAN 18 % (21-46); METAMYELOCYTE ABSOLUTE MAN 0.19 K/mm3 (0.00-0.00); METAMYELOCYTE PERCENT MAN 2 % (0-0); MONOCYTES ABSOLUTE MAN 0.19 K/mm3 (0.16-1.47); MONOCYTES PERCENT MAN 2 % (4-13); MYELOCYTE ABSOLUTE MAN 0.29 K/mm3 (0.00-0.00); MYELOCYTE PERCENT MAN 3 % (0-0); NEUTROPHILS ABSOLUTE MAN 6.64 K/mm3 (1.96-9.15); SEG NEUTROPHILS PERCENT MAN 68 % (41-73); TOTAL CELLS COUNTED 100
[2023-03-12 17:12] LABS: Mean Platelet Volume 9.8 fL (9.1-12.4); Platelet Count 209 K/mm3 (150-400)
== END ==
LOC: LAB 13:43 → LAB SHORT 13:43
PROVIDERS: Family Medicine
DX: E03.9 Hypothyroidism, unspecified (principal); E11.42 Type 2 diabetes mellitus with diabetic polyneuropathy; E11.22 Type 2 diabetes mellitus with diabetic chronic kidney disease; M10.9 Gout, unspecified; N18.30 Chronic kidney disease, stage 3 unspecified; Z79.4 Long term (current) use of insulin; Z79.899 Other long term (current) drug therapy
CPT/HCPCS: 80053; 82306; 83036; 84443; 84550; 85025

== ENCOUNTER → 2023-07-03 | Outpatient (CLI) | payer MEDICARE, OTHER ==
[2023-07-03 14:42] LABS: BASOPHILS ABSOLUTE AUTO 0.07 K/mm3 (0.00-0.23); BASOPHILS PERCENT AUTO 1 % (0-2); EOSINOPHILS ABSOLUTE AUTO 0.35 K/mm3 (0.00-0.68); EOSINOPHILS PERCENT AUTO 4 % (0-6); Hematocrit 37.7 % (37.0-53.0); Hemoglobin 11.8 g/dL (13.5-17.5); IMMATURE GRAN ABSOLUTE AUTO 0.23 K/mm3 (0.00-0.10); IMMATURE GRAN PERCENT AUTO 2 % (0-1); LYMPHOCYTES ABSOLUTE AUTO 1.88 K/mm3 (0.84-5.20); LYMPHOCYTES PERCENT AUTO 19 % (21-46); MONOCYTES ABSOLUTE AUTO 0.68 K/mm3 (0.16-1.47); MONOCYTES PERCENT AUTO 7 % (4-13); Mean Corpuscular HGB 30.3 pg (26.0-34.0); Mean Corpuscular HGB Conc 31.3 g/dL (31.5-36.5); Mean Corpuscular Volume 97 fL (80-100); Mean Platelet Volume 9.4 fL (9.1-12.4); NEUTROPHILS ABSOLUTE AUTO 6.62 K/mm3 (1.96-9.15); NEUTROPHILS PERCENT AUTO 67 % (41-73); Platelet Count 187 K/mm3 (150-400); RDW Coefficient Variation 13.9 % (11.7-14.2); RDW Standard Deviation 49.2 fL (35.1-46.3); White Blood Cell Count 9.83 K/mm3 (4.00-11.30)
[2023-07-03 15:01] LABS: Magnesium, Blood 2.2 mg/dL (1.6-2.4)
[2023-07-03 15:05] LABS: Albumin, Blood 2.2 g/dL (3.4-5.0); Albumin/Globulin Ratio 0.6 (0.8-1.8); Bilirubin, Total 0.2 mg/dL (0.1-1.0); Calcium, Blood 8.9 mg/dL (8.5-10.1); Creatinine, Blood 3.65 mg/dL (0.60-1.20); Globulin, Blood 3.7 g/dL (2.2-4.0); Phosphorus, Blood 4.7 mg/dL (2.5-4.9); Potassium, Blood 4.7 mmol/L (3.5-5.5); Thyroid Stimulating Hormone 1.28 uIU/mL (0.360-4.800); Total Protein, Blood 5.9 g/dL (6.4-8.2)
[2023-07-08 20:11] LABS: HEMOGLOBIN A1C 6.9 % (4.8-5.6)
== END ==
LOC: LAB 11:55 → LAB SHORT 11:55
PROVIDERS: Family Medicine
DX: E03.9 Hypothyroidism, unspecified (principal); E11.42 Type 2 diabetes mellitus with diabetic polyneuropathy; E11.22 Type 2 diabetes mellitus with diabetic chronic kidney disease; N18.4 Chronic kidney disease, stage 4 (severe); Z79.4 Long term (current) use of insulin
CPT/HCPCS: 80053; 83036; 83735; 84100; 84443; 85025